=== PATIENT | female | born 1960 | race Caucasian/White ===

== ENCOUNTER 2020-10-31 12:42 | Outpatient (REF) | payer MEDICAID, SELFPAY ==
--- NOTE | 2020-10-31 12:48 | MM_ITS ---
EXAMINATION: MM SCREENING DIGITAL BREAST TOMOSYNTHESIS, BILATERAL CLINICAL INFORMATION: Screening. Asymptomatic. The lifetime risk of breast cancer based on the Tyrer-Cuzick Model is 4%. COMPARISON: Mammography: 10/13/2015, 11/05/2011, 08/17/2010 TECHNIQUE: Digital breast tomosynthesis is performed in both the craniocaudal and mediolateral oblique views along with computer-aided detection (CAD). Synthesized 2D images are generated from the tomosynthesis. FINDINGS: There are scattered areas of fibroglandular density (ACR BI-RADS breast composition Category b). The fibroglandular tissue is predominantly retroareolar and similar to prior studies. The remainder of the breasts are predominantly fatty. There are bilateral vascular calcifications. There is no interval mass or architectural abnormality or abnormal calcifications. No significant changes. MM/MM tomosynthesis screening BI IMPRESSION: No mammographic evidence of malignancy. ASSESSMENT: BI-RADS 1: Negative RECOMMENDATION: Routine annual mammography screening. This patient's information was entered into a reminder system with a target due date for their next mammogram.
--- NOTE | 2020-10-31 12:48 | MM_ITS ---
EXAMINATION: BONE DENSITOMETRY CLINICAL INDICATION: Screening. COMPARISON: Previous BD dated 10/13/2015 and baseline BD dated 08/17/2010. TECHNIQUE: Using a [employer] DXA System (software version: 13.1) manufactured by [employer], dual-energy x-ray absorptiometry was performed of the lumbar spine and left hip. The images are of good technical quality. Summary results are attached. FINDINGS: AP SPINE L1-L4: Current: BMD 0.984 g/cm2, Z-score -0.2, T-score -1.6, osteopenia, 2.4% decrease from previous, 8.5% increase from baseline (<5% change is not significant). Prior: BMD 1.008 g/cm2. Baseline: BMD 0.907 g/cm2. LEFT FEMUR, NECK: Current: BMD 0.673 g/cm2, Z-score -1.2, T-score -2.6, osteoporosis. Prior: BMD 0.663 g/cm2. Baseline: BMD 0.752 g/cm2. LEFT FEMUR, TOTAL: Current: BMD 0.669 g/cm2, Z-score -1.6, T-score -2.7, osteoporosis, 5.1% decrease from previous, 8.0% decrease from baseline (<5% change is not significant). Prior: BMD 0.705 g/cm2. Baseline: BMD 0.727 g/cm2. IDENTIFIED RISK FACTORS: Early menopause, left oophorectomy, secondary osteoporosis, alcohol (3 or more units per day). HISTORY OF FRACTURE: Wrist. No insufficiency fracture reported. MEDICATIONS: Calcium or multivitamin. Vitamin D. MM/XR DEXA axial skeleton IMPRESSION: 1. DIAGNOSIS: Osteoporosis based on the lowest T-score value of -2.7 in the total femur applying World Health Organization criteria. 2. 10-YEAR FRACTURE RISK PREDICTION, FRAX: Major osteoporotic fracture (clinical spine, forearm, hip or shoulder) 16.0%. Hip fracture 4.2%. 3. Treatment Recommendations: NOF guidelines recommend consideration for treatment in postmenopausal women and men age 50 and older presenting with the following: -A hip or vertebral (clinical or morphometric) fracture. -T-score less than or equal to -2.5 at the femoral neck or spine after appropriate evaluation to exclude secondary causes. -Low bone mass at the hip or spine and a 10-year fracture probability by FRAX of greater than or equal to 3% for hip fracture or greater than or equal to 20% for major osteoporotic fracture based on the [place] adapted WHO algorithm. 4. Other Recommendations: All treatment decisions require clinical judgment and consideration of individual patient factors, including patient preferences, comorbidities, previous drug use, risk factors not captured in the FRAX model (e.g. frailty, falls, vitamin D deficiency, increased bone turnover, interval significant decline in bone density) and possible under or overestimation of fracture risk by FRAX. Additional medical evaluation for secondary cause of low bone mineral density may be appropriate. FUTURE SCAN RECOMMENDATION: People with diagnosed cases of osteoporosis or at high risk for fracture should have regular bone mineral density tests. For patients eligible for Medicare, routine testing is allowed once every 2 years. The testing frequency can be increased to one year for patients who have rapidly progressing disease, those who are receiving or discontinuing medical therapy to restore bone mass, or have additional risk factors.
== END 2020-10-31 12:43 | disposition home or self-care (01) ==
LOC: HO.MAMMO 12:42
PROVIDERS: PCP Internal Medicine; Visit Provider Internal Medicine
DX: Z12.31 Encounter for screening mammogram for malignant neoplasm of breast (principal); Z78.0 Asymptomatic menopausal state
CPT/HCPCS: 77063; 77067; 77080

== ENCOUNTER 2020-11-16 08:04 | Outpatient (REF) | payer MEDICAID, SELFPAY ==
--- NOTE | 2020-11-16 09:04 | XR_ITS ---
EXAMINATION: CERVICAL SPINE AND RIGHT ELBOW X-RAY CLINICAL INFORMATION: Pain COMPARISON: Previous cervical spine x-ray September 2015 TECHNIQUE: 3 views of the cervical spine and 3 views of the right elbow FINDINGS: Cervical spine: There is mild 2 mm anterior subluxation of C3 with respect to C4. Bone alignment is otherwise normal. There is degenerative spondylosis and degenerative disc disease from C3-C4 to C6-C7. There is bilateral multilevel facet arthritis. Prevertebral soft tissues are normal. Left elbow: Bone alignment is normal. No acute fracture or dislocation is seen. There is arthritis at the elbow joint with joint space narrowing and osteophyte formation. Lateral view is suboptimal due to rotation. A definite elbow joint effusion is not seen. Soft tissues are unremarkable. XR/XR elbow RT 2V IMPRESSION: Cervical spine: Severe degenerative changes. Right elbow: Arthritis.
--- NOTE | 2020-11-16 09:04 | XR_ITS ---
EXAMINATION: CERVICAL SPINE AND RIGHT ELBOW X-RAY CLINICAL INFORMATION: Pain COMPARISON: Previous cervical spine x-ray September 2015 TECHNIQUE: 3 views of the cervical spine and 3 views of the right elbow FINDINGS: Cervical spine: There is mild 2 mm anterior subluxation of C3 with respect to C4. Bone alignment is otherwise normal. There is degenerative spondylosis and degenerative disc disease from C3-C4 to C6-C7. There is bilateral multilevel facet arthritis. Prevertebral soft tissues are normal. Left elbow: Bone alignment is normal. No acute fracture or dislocation is seen. There is arthritis at the elbow joint with joint space narrowing and osteophyte formation. Lateral view is suboptimal due to rotation. A definite elbow joint effusion is not seen. Soft tissues are unremarkable. XR/XR cervical spine 2V IMPRESSION: Cervical spine: Severe degenerative changes. Right elbow: Arthritis.
[2020-11-16 09:52] LABS: MANUAL DIFF FLAG NO
[2020-11-16 09:58] LABS: Basophils Percent Auto 0.6 % (0-2); Eosinophils Absolute Auto 0.1 X10*3/uL (0.0-0.4); Eosinophils Percent Auto 3.2 % (0-4); Hematocrit 36.9 % (37-47); Hemoglobin 12.6 g/dl (12.0-16.0); Imm Gran Abs Auto 0.01 X10*3/uL (0.00-0.03); Imm Gran Pct Auto 0.3 % (0.0-0.4); Lymphocytes Absolute Auto 0.9 X10*3/uL (1.2-4.9); Lymphocytes Percent Auto 28.4 % (20-40); Mean Corpuscular HGB Conc 34.1 g/dl (31.0-35.0); Mean Corpuscular Hemoglobin 34.2 pg (27.0-33.0); Mean Corpuscular Volume 100.3 fL (80-98); Mean Platelet Volume 10.1 fL (9.4-12.3); Monocytes Absolute Auto 0.3 X10*3/uL (0.1-1.2); Monocytes Percent Auto 9.7 % (2-11); Neutrophils Absolute Auto 1.8 X10*3/uL (2.0-8.3); Neutrophils Percent Auto 57.8 % (45-73); Red Blood Count 3.68 X10*6/uL (4.20-5.50); Red Cell Distribution Width 11.5 % (11.0-16.0); White Blood Count 3.1 X10*3/uL (4.8-10.8)
[2020-11-16 10:06] LABS: Platelet Count 80 X10*3/uL (160-400)
[2020-11-16 10:35] LABS: Alanine Aminotransferase 59 U/L (0-31); Albumin Level 4.1 g/dL (3.5-5.0); Alkaline Phosphatase 97 U/L (39-117); Anion Gap 14 (12-20); Aspartate Amino Transferase 85 U/L (5-31); Blood Urea Nitrogen 13 mg/dL (9-16); C Reactive Protein 0.07 mg/dL (< or = 0.50); Calcium 8.9 mg/dL (8.4-10.2); Carbon Dioxide 25 mmol/L (22-29); Chloride 106 mmol/L (96-108); Estimated Glomerular Filt Rate > 60; Glucose Random 107 mg/dL (60-115); Potassium 3.6 mmol/l (3.3-5.1); Rheumatoid Factor 34.5 IU/mL (<15.0); Sodium 141 mmol/L (135-145)
[2020-11-16 10:55] LABS: Erythrocyte Sedimentation Rate 13 MM/HR (0-20); Thyroid Stimulating Hormone 1.26 uIU/mL (0.32-4.0)
[2020-11-16 10:59] LABS: HBS Num1 0.71 mIU/mL (0-7.99); HBc Num1 0.07 S/CO (0.00-0.79); HBsAGNum1 0.16 S/CO (0.00-0.99); Hepatitis A Antibody IgM 0.25 Index (0-0.79); Hepatitis B Core Antibody Nonreactive (Nonreactive); Hepatitis B Surface Antigen Negative (Negative); ~HepC Num1 0.12 S/CO (0.00-0.79); ~Hepatitis A Antibody IgM Nonreactive (Nonreactive); ~Hepatitis B Surface Antibody NONREACTIVE (Nonreactive); ~Hepatitis C Antibody Nonreactive (Nonreactive)
[2020-11-16 11:00] LABS: Glucose Urine UA NEG (NEG); Leukocyte Esterase Urine NEG (NEG); Nitrite Urine NEG (NEG); Specific Gravity - Urine >= 1.030 (1.005-1.025); Urine Blood NEG (NEG); Urine Ketones NEG (NEG); Urine Protein NEG (NEG-TRACE)
[2020-11-16 11:02] LABS: Appearance Urine CLEAR; Color Urine YELLOW
[2020-11-16 11:23] LABS: Bacteria Urine TRACE /LPF; RBC Urine 0-2 /HPF (0); Squamous Epithelial Cell Urine TRACE /LPF; WBC Urine 0-2 /HPF (0-4)
[2020-11-16 11:24] LABS: Uric Acid Crystals Urine TRACE /LPF
[2020-11-17 06:43] LABS: Thyroglobulin Antibodies 12 IU/mL (< or = 1); Thyroid Peroxidase Antibodies 199 IU/mL (<9)
[2020-11-17 12:36] LABS: Anti DNA DS Antibody <1 IU/mL; Antibody to SS-A Antigen <1.0 NEG AI (<1.0 NEG); Antibody to SS-B Antigen <1.0 NEG AI (<1.0 NEG); SM/Ribonucleoprotein Ab <1.0 NEG AI (<1.0 NEG); Scleroderma 70 Antibody <1.0 NEG AI (<1.0 NEG); Smith Protein <1.0 NEG AI (<1.0 NEG)
[2020-11-17 14:12] LABS: IgA 451 mg/dL (70-320); IgG 1000 mg/dL (600-1540); IgM 157 mg/dL (50-300)
[2020-11-17 15:22] LABS: Prot Elec - Albumin 3.9 g/dL (3.8-4.8); Prot Elec - Alpha1 0.3 g/dL (0.2-0.3); Prot Elec - Alpha2 0.6 g/dL (0.5-0.9); Prot Elec - Beta 1 0.4 g/dL (0.4-0.6); Prot Elec - Beta 2 0.4 g/dL (0.2-0.5); Prot Elec - Total Protein 6.6 g/dL (6.1-8.1)
[2020-11-17 15:48] LABS: Cyclic Citrullinated Peptide <16 UNITS
[2020-11-18 13:27] LABS: Complement C3 79 mg/dL (83-193)
[2020-11-20 13:57] LABS: Vitamin D 25-OH, D2 <4 ng/mL; Vitamin D 25-OH, D3 39 ng/mL; Vitamin D 25-OH, Total 39 ng/mL (30-100)
== END 2020-11-16 08:05 | disposition home or self-care (01) ==
LOC: HO.LAB 08:04
PROVIDERS: PCP Internal Medicine; Visit Provider Student in an Organized Health Care Education/Training Program
DX: M25.50 Pain in unspecified joint (principal); R76.8 Other specified abnormal immunological findings in serum; Z87.891 Personal history of nicotine dependence
CPT/HCPCS: 36415; 72040; 73070; 80053; 81001; 82306; 82784; 84155; 84165; 84443; 85025; 85652; 86140; 86160; 86200; 86225; 86235; 86334; 86376; 86431; 86704; 86706; 86709; 86800; 86803; 87340; 99202

== ENCOUNTER 2021-01-05 08:21 | Outpatient (REF) | payer MEDICAID, SELFPAY ==
[2021-01-05 09:43] LABS: MANUAL DIFF FLAG NO
[2021-01-05 09:55] LABS: Basophils Percent Auto 0.7 % (0-2); Eosinophils Absolute Auto 0.1 X10*3/uL (0.0-0.4); Hematocrit 39.6 % (37-47); Hemoglobin 13.1 g/dl (12.0-16.0); Imm Gran Abs Auto 0.01 X10*3/uL (0.00-0.03); Imm Gran Pct Auto 0.3 % (0.0-0.4); Lymphocytes Percent Auto 33.1 % (20-40); Mean Corpuscular HGB Conc 33.1 g/dl (31.0-35.0); Mean Corpuscular Hemoglobin 33.9 pg (27.0-33.0); Mean Corpuscular Volume 102.6 fL (80-98); Monocytes Absolute Auto 0.3 X10*3/uL (0.1-1.2); Monocytes Percent Auto 8.9 % (2-11); Neutrophils Absolute Auto 1.6 X10*3/uL (2.0-8.3); Red Blood Count 3.86 X10*6/uL (4.20-5.50); Red Cell Distribution Width 11.1 % (11.0-16.0)
[2021-01-05 09:56] LABS: Platelet Count 72 X10*3/uL (160-400)
[2021-01-05 10:12] LABS: Alanine Aminotransferase 115 U/L (0-31); Albumin Level 4.3 g/dL (3.5-5.0); Alkaline Phosphatase 113 U/L (39-117); Anion Gap 14 (12-20); Aspartate Amino Transferase 187 U/L (5-31); Blood Urea Nitrogen 8 mg/dL (9-16); C Reactive Protein 0.05 mg/dL (< or = 0.50); Calcium 9.4 mg/dL (8.4-10.2); Carbon Dioxide 27 mmol/L (22-29); Chloride 103 mmol/L (96-108); Estimated Glomerular Filt Rate > 60; Glucose Random 115 mg/dL (60-115); Potassium 4.2 mmol/L (3.3-5.1); Sodium 140 mmol/L (135-145); Total Protein 7.5 g/dL (6.5-8.0)
[2021-01-05 10:42] LABS: Erythrocyte Sedimentation Rate 7 MM/HR (0-20)
[2021-01-07 18:21] LABS: TS Negative Control Passed; TS Panel A 0; TS Panel B 0; TS Positive Control Passed; TSpotTB Negative (SeeBelow)
[2021-01-10 07:06] LABS: Vitamin D 25-OH, D2 <4 ng/mL; Vitamin D 25-OH, D3 44 ng/mL; Vitamin D 25-OH, Total 44 ng/mL (30-100)
== END 2021-01-05 08:22 | disposition home or self-care (01) ==
LOC: HO.LAB 08:21
PROVIDERS: PCP Internal Medicine; Visit Provider Student in an Organized Health Care Education/Training Program
DX: M05.9 Rheumatoid arthritis with rheumatoid factor, unspecified (principal); M81.8 Other osteoporosis without current pathological fracture; M32.9 Systemic lupus erythematosus, unspecified; M47.22 Other spondylosis with radiculopathy, cervical region; D72.819 Decreased white blood cell count, unspecified; R79.89 Other specified abnormal findings of blood chemistry
CPT/HCPCS: 36415; 80053; 82306; 85025; 85652; 86140; 86481; 99212

== ENCOUNTER 2021-01-13 08:31 | Outpatient (REF) | payer MEDICAID, SELFPAY ==
--- NOTE | ~2021-01-13 | MR_ITS ---
EXAMINATION: MR CERVICAL SPINE WITHOUT CONTRAST CLINICAL INFORMATION: Other spondylosis with radiculopathy, cervical region. COMPARISON: Cervical spine MRI December 17, 2006. TECHNIQUE: MRI of the cervical spine was performed using routine sequences without contrast. FINDINGS: The cervical vertebral bodies maintain normal heights. There is progressive grade 1 anterolisthesis of C3 on C4 measuring up to 4 mm with alignment otherwise maintained. There is multilevel intervertebral disc height loss predominantly at the C3-C4 and C4-C5 levels. The cervical cord signal appears normal. The imaged portions of the extraspinal soft tissues appear normal. The imaged portions of the intracranial contents appear normal. SPINAL LEVELS: C2-C3: No posterior disc abnormality. No spinal canal or neural foraminal stenosis. C3-C4: Progressive anterolisthesis with disc osteophyte complex and ligamentum flavum infolding resulting in progressive now moderate to severe spinal canal stenosis with flattening of the cord. Progressive severe facet arthropathy and in combination with uncovertebral hypertrophy results in new severe bilateral neural foraminal stenosis. C4-C5: Disc osteophyte complex with uncovertebral hypertrophy and progressive moderate bilateral facet arthropathy resulting in moderate to severe spinal canal stenosis and severe bilateral left more than right neural foraminal stenosis. C5-C6: Disc osteophyte complex with uncovertebral hypertrophy and mild facet arthropathy resulting in progressive moderate spinal canal stenosis and progressive moderate to severe bilateral neural foraminal stenosis. C6-C7: No posterior disc abnormality. Right foraminal protrusion with uncovertebral hypertrophy mildly narrows the right neural foramen, similar prior. C7-T1: No posterior disc abnormality. No spinal canal or neural foraminal stenosis. MR/MR cervical spine wo con IMPRESSION: At C3-C4 there is progressive grade 1 anterolisthesis related to advanced facet arthropathy resulting in new moderate to severe spinal canal stenosis and severe bilateral neural foraminal stenosis. At C4-C5 there is progressive moderate to severe spinal canal stenosis and severe bilateral neural foraminal stenosis. At C5-C6 there is progressive moderate spinal canal stenosis and moderate to severe bilateral neural foraminal stenosis.
== END 2021-01-13 08:32 | disposition home or self-care (01) ==
LOC: HO.MRI 08:31
PROVIDERS: Visit Provider Student in an Organized Health Care Education/Training Program
DX: M47.22 Other spondylosis with radiculopathy, cervical region (principal)
CPT/HCPCS: 72141

== ENCOUNTER 2021-01-26 08:13 | Outpatient (REF) | payer MEDICAID, SELFPAY ==
--- NOTE | ~2021-01-26 | US_ITS ---
EXAMINATION: US ABDOMEN COMPLETE CLINICAL INFORMATION: Elevated LFTs. COMPARISON: Ultrasound abdomen complete 09/20/2015 TECHNIQUE: Real-time imaging of the abdominal viscera. FINDINGS: PANCREAS: Normal. ABDOMINAL AORTA: There is mild atherosclerosis of abdominal aorta. INFERIOR VENA CAVA: Visualized portions are normal. LIVER: The umbilical vein has been recanalized. The liver is normal in size. The liver contour is normal. Parenchymal echogenicity is normal. No focal hepatic lesion. There is no intrahepatic biliary duct dilatation seen. GALLBLADDER: Normal. The gallbladder is physiologically distended without evidence of stones, sludge, polyps, wall thickening or pericholecystic fluid. COMMON BILE DUCT: Normal in caliber measuring 0.5 cm in diameter. RIGHT KIDNEY: There are 2 echogenic stones in midpole measuring 0.2 x 0.09 and 0.2 x 0.1 cm. There is no caliectasis or hydronephrosis. The kidney measures 10.0 cm in maximum dimension. LEFT KIDNEY: There is a small dromedary hump midpole. No hydronephrosis. No renal calculi or focal parenchymal lesions. The kidney measures 10.0 cm in maximum dimension. SPLEEN: Normal. The spleen measures 12.9 cm in maximum dimension. FREE FLUID: None. US/US abdomen complete IMPRESSION: Punctate echogenic nonobstructive stones midpole right kidney. Mild atherosclerotic plaque abdominal aorta.
== END 2021-01-26 08:14 | disposition home or self-care (01) ==
LOC: HO.US 08:13
PROVIDERS: Visit Provider Internal Medicine
DX: R79.89 Other specified abnormal findings of blood chemistry (principal)
CPT/HCPCS: 76700

== ENCOUNTER → 2021-02-01 09:06 | Outpatient (BNVA) | payer MEDICAID, SELFPAY | PROVIDERS: PCP Internal Medicine; Visit Provider Student in an Organized Health Care Education/Training Program | DX: M32.9 Systemic lupus erythematosus, unspecified (principal); M05.9 Rheumatoid arthritis with rheumatoid factor, unspecified; M47.22 Other spondylosis with radiculopathy, cervical region; M81.8 Other osteoporosis without current pathological fracture; I10 Essential (primary) hypertension; R79.89 Other specified abnormal findings of blood chemistry; Z79.899 Other long term (current) drug therapy | CPT/HCPCS: 99212 ==

== ENCOUNTER → 2021-02-14 08:56 | Outpatient (BNVA) | payer MEDICAID, SELFPAY | PROVIDERS: PCP Internal Medicine; Visit Provider Physician Assistant ==

== ENCOUNTER 2021-04-10 08:08 | Day surgery (SDC) | payer MEDICAID, SELFPAY ==
--- NOTE | 2021-04-06 14:09 | HO.ANESPROP2 ---
Documented by User: Mame Quintana 04/06/21 14:16 HPI - Anesthesia Eval Consult details Narrative: 60yo F for Upper Endoscopy and Colonoscopy Chronic leukopenia and thrombocytopenia. Started on plaquenil and platelets trending down. Will repeat levels DOS. PMFSH Active Problems Active Problems: All Active Problems (Updated 02/14/21 @ 10:51 by Ivonne Cash PA-C) Thrombocytopenia (Acute) Hypertension (Acute) Polyarthralgia (Acute) Leukopenia (Chronic) Lupus (systemic lupus erythematosus) (Acute) Seropositive rheumatoid arthritis (Acute) Cervical spondylosis with radiculopathy (Acute) Osteoporosis (Acute) Elevated LFTs (Acute) Cervical stenosis of spinal canal (Acute) CAIT positive (Acute) Past Medical History Medical History CAIT positive Cervical stenosis of spinal canal Hx of fracture of wrist Hx of ovarian cancer Hypertension Leukopenia Lupus (systemic lupus erythematosus) Osteoporosis Polyarthralgia Thrombocytopenia Family History Family History Paternal Grandmother Ovarian cancer Maternal Grandmother H/O heart bypass surgery Maternal Grandfather Heart attack Mother Asthma HTN (hypertension) Hyperlipidemia Father HTN (hypertension) Hyperlipidemia Surgical History Surgical History Hx of removal of ovary Social History Social History Household Members: None Alcohol intake: former Substance Use Type: Marijuana Advance Directives: No Advance Directives Information Provided: Yes Current occupational status: employed 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 Meds Allergies Allergy/AdvReac Type Severity Reaction Status Date / Time Seasonal Allergies Allergy sneezing Verified 02/14/21 09:11 Home Medications Medication Instructions Recorded Confirmed Last Taken Type ascorbate calcium (vitamin C) 500 500 mg PO DAILY 02/01/21 02/14/21 Unknown History mg tablet cholecalciferol (vitamin D3) 25 25 mcg PO DAILY 02/01/21 02/14/21 Unknown History mcg (1,000 unit) capsule vitamin B complex 1 tab PO DAILY 02/01/21 02/14/21 Unknown History vitamin C 50 mg-biotin 1,250 mcg tab PO 02/14/21 02/14/21 Unknown History chewable tablet Exam Exam Date and Time: April 06, 2021 1409 Height,Weight and Vital Signs: Height 5 ft 4 in Pertinent Lab Results Pertinent Lab Results: Laboratory Tests 01/05/21 01/05/21 09:15 09:15 WBC 3.0 L Hgb 13.1 Hct 39.6 Plt Count 72 L Sodium 140 Potassium 4.2 Chloride 103 Carbon Dioxide 27 BUN 8 L Creatinine 0.79 Assessment and Plan Assessment Anesthesia Assessment: Chart Reviewed Documented by User: Giana Ibarra 04/10/21 09:38 [facility] Past Medical History Medical History CAIT positive Cervical stenosis of spinal canal Hx of fracture of wrist Hx of ovarian cancer Hypertension Leukopenia Lupus (systemic lupus erythematosus) Osteoporosis Polyarthralgia Thrombocytopenia Family History Family History Paternal Grandmother Ovarian cancer Maternal Grandmother H/O heart bypass surgery Maternal Grandfather Heart attack Mother Asthma HTN (hypertension) Hyperlipidemia Father HTN (hypertension) Hyperlipidemia Surgical History Surgical History Hx of removal of ovary Social History Social History Household Members: None Alcohol intake: former Substance Use Type: Marijuana Advance Directives: No Advance Directives Information Provided: Yes Current occupational status: employed 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 Meds Allergies Allergy/AdvReac Type Severity Reaction Status Date / Time Seasonal Allergies Allergy sneezing Verified 02/14/21 09:11 Home Medications Medication Instructions Recorded Confirmed Last Taken Type ascorbate calcium (vitamin C) 500 500 mg PO DAILY 02/01/21 02/14/21 Unknown History mg tablet cholecalciferol (vitamin D3) 25 25 mcg PO DAILY 02/01/21 02/14/21 Unknown History mcg (1,000 unit) capsule vitamin B complex 1 tab PO DAILY 02/01/21 02/14/21 Unknown History vitamin C 50 mg-biotin 1,250 mcg tab PO 02/14/21 02/14/21 Unknown History chewable tablet Exam Airway Mallampati Class: II TM Dist: >3cm Neck ROM: Full Denture: Upper
[2021-04-10 08:12] VITALS: BMI 28.5
--- NOTE | 2021-04-10 09:25 | MHC.SHP ---
Pre-Procedural Eval Section B Chief Complaint: Elevated LFT's Relevant Family History (Specify if Yes): No Relevant Social History: Other (specify) (THC) Present Medications: see Short Stay Collaborative assessment Medical History: Significant History (CAIT positive Cervical stenosis of spinal canal Hx of fracture of wrist Hx of ovarian cancer Hypertension Leukopenia Lupus (systemic lupus erythematosus) Osteoporosis Polyarthralgia Thrombocytopenia) History of Previous Operations: Relevant previous surgery/procedure and date(s) (oophorectomy) Allergies: Allergies Allergy/AdvReac Type Severity Reaction Status Date / Time Seasonal Allergies Allergy sneezing Verified 02/14/21 09:11 Review of Systems Sugical H&P ROS: Negative: Constitution, Cardiovascular, Respiratory, Neurological, Psychiatric, Hem-Onc, Allergic/Immunologic, Gastrointestinal, Genitourinary, Musculoskeletal, Integumentary, Endocrine and Eyes/Ears/Nose/Throat Exam Surgical H&P Exam: Normal: HEENT, Normal: Heart, Normal: Lungs, Normal: Extremities, Normal: Abdomen, Normal: Skin and Normal: Neurological Plan Diagnosis/Plan: Unchanged I have reviewed the history and physical and performed a pertinent physical examination on my patient. No changes have occurred unless specified.
--- NOTE | 2021-04-10 09:31 | P.BOP_ITS ---
Brief Operative Note Date of Service: 04/10/21 Pre-op diagnosis: variceal screening, colon screening Post-op diagnosis: same Procedure: see op note Surgeon: Cali Marcelino MD Anesthesia: MAC Was an House Mover Supervisor used for this Procedure?: No Estimated blood loss (mL): 0 Condition: stable Disposition: PACU
--- NOTE | 2021-04-10 09:32 | W.PM.OPN ---
Operative Note Operative Note Date of Service: 04/10/21 Narrative: Operative Information Procedure Description: EGD, Colonoscopy FLEXIBLE TRANSORAL UPPER GASTROINTESTINAL ENDOSCOPY AND COLONOSCOPY PROCEDURE NOTE UPPER ENDOSCOPY Consent: Indications for the procedure and potential complications of bleeding, perforation, reaction to medications and missed diagnosis were discussed with the patient and informed consent was obtained. Instrument: Olympus GIF H 190 J mid size upper endoscope Monitoring: Vital signs and clinical assessment, continuous EKG monitoring, Pulse oximetry, Carbon Dioxide monitoring and blood pressure monitoring were done throughout the procedure. Procedure: The patient was placed in the left lateral decubitis position and pre-procedure medications were administered and a bite block was placed. The endoscope was inserted into the mouth and advanced under direct vision to the third part of duodenum. A careful inspection was made as the upper endoscope was withdrawn including a retroflexed examination of the proximal stomach; Findings and interventions are described below. Findings: Larynx:normal Esophagus: GE junction at 40 cm, diaphragm hiatus at 40 cm, x 1 esophageal varix seen which collapsed with air insufflation Stomach: erythema with mosaic pattern consistent with portal hypertensive gastropathy. Biopsies were obtained. Grade 2 flap valve on retroflexed examination of the cardia. No fundal varices seen Duodenum: Normal bulb and descending duodenum, bx taken Intervention: Biopsies as noted above COLONOSCOPY Instrument: Olympus variable stiffness pediatric scope 190L Colonoscopy Monitoring: Vital signs and clinical assessment, continuous EKG monitoring, Pulse oximetry, Carbon Dioxide monitoring and blood pressure monitoring were done throughout the procedure. Colon withdrawal time was 6 minutes. Procedure: The patient was placed in the left lateral decubitis position and pre-procedure medications were administered. After a digital rectal examination of the ano-rectum, the video colonoscope was inserted into the rectum and advanced through the colon to the cecum/TI. The colonoscope was slowly withdrawn in a retrograde panoramic fashion and the colon mucosa was carefully examined including a retroflexed view of the rectum. Findings and interventions are described below. Procedure Difficulty:moderate, pressure applied to get to cecum Findings: Terminal Ileum-normal Cecum:normal Ascending Colon: normal Transverse Colon -normal Descending Colon:normal Sigmoid Colon: normal Rectum: Retroflexion with moderate sized internal hemorrhoids, grade I Anorectum - normal Colon preparation: [place] Bowel Preparation Scale Right colon; 3 Transverse colon: 3 Left colon; 3 (0 = Unprepared colon segment with mucosa not seen due to solid stool that cannot be cleared. 1 = Portion of mucosa of the colon segment seen, but other areas of the colon segment not well seen due to staining, residual stool and/or opaque liquid. 2 = Minor amount of residual staining, small fragments of stool and/or opaque liquid, but mucosa of colon segment seen well. 3 = Entire mucosa of colon segment seen well with no residual staining, small fragments of stool or opaque liquid) Impression and Post Procedure Diagnosis: Endoscopy Findings: portal hypertensive gastropathy esophageal varix Colonoscopy Findings: internal hemorrhoids Plan: Await Pathology results Repeat Colonoscopy in 10 years or earlier if clinically indicated High fiber diet leaflet avoid straining at stool, epsom salts and sitz bath, anusol supps or cream as needed repeat EGD in 1-2 yrs or earlier if clinically indicated Above findings were reviewed with the patient and relevant handouts were provided if indicated.
[2021-04-10 09:59] LABS: Hematocrit 38.5 % (37-47); Hemoglobin 13.2 g/dl (12.0-16.0); Mean Corpuscular HGB Conc 34.3 g/dl (31.0-35.0); Mean Corpuscular Volume 93.2 fL (80-98); Mean Platelet Volume 10.1 fL (9.4-12.3); Red Blood Count 4.13 X10*6/uL (4.20-5.50); Red Cell Distribution Width 11.1 % (11.0-16.0); White Blood Count 2.9 X10*3/uL (4.8-10.8)
[2021-04-10 10:01] LABS: Platelet Count 82 X10*3/uL (160-400)
[2021-04-10 10:02] VITALS: BP 178/63; PULSE 57; RESP 16; TEMP 36.8; O2SAT 100
[2021-04-10 10:30] VITALS: BP 130/72; PULSE 95; RESP 16; TEMP 36.3; O2SAT 100
[2021-04-10 10:45] VITALS: BP 154/90; PULSE 95; RESP 16; TEMP 36.3; O2SAT 99
== END 2021-04-10 11:30 | disposition home or self-care (01) ==
PROVIDERS: Nurse Practitioner; PCP Internal Medicine; Visit Provider Internal Medicine Gastroenterology
PROC: (CPT 43239; principal; 2021-04-10 09:30)
DX: Z12.11 Encounter for screening for malignant neoplasm of colon (principal); R79.89 Other specified abnormal findings of blood chemistry; K64.0 First degree hemorrhoids; I85.00 Esophageal varices without bleeding; K76.6 Portal hypertension; K31.89 Other diseases of stomach and duodenum; I10 Essential (primary) hypertension; D69.6 Thrombocytopenia, unspecified; Z79.899 Other long term (current) drug therapy
CPT/HCPCS: 43239; 45378; 36415; 85027; 88305; 88342

== ENCOUNTER 2021-04-26 08:48 | Outpatient (REF) | payer MEDICAID, SELFPAY ==
--- NOTE | ~2021-04-26 | XR_ITS ---
EXAMINATION: XR SHOULDER, RIGHT CLINICAL INFORMATION: Pain. History of lupus. COMPARISON: None TECHNIQUE: AP external rotation, Grashey, scapular Y, and axillary views of the right shoulder. FINDINGS: The bones are osteopenic. Bone alignment is normal. No acute fracture or dislocation is seen. There are old healed right rib fractures. Glenohumeral joint is normal. There is mild arthritis at the acromioclavicular joint. There are degenerative changes of the greater tuberosity. Soft tissues are unremarkable. XR/XR shoulder RT min 2V IMPRESSION: Osteopenia. Arthritis at the acromioclavicular joint and degenerative changes of the greater tuberosity.
[2021-04-26 11:15] LABS: MANUAL DIFF FLAG NO
[2021-04-26 11:44] LABS: Basophils Percent Auto 0.8 % (0-2); Eosinophils Absolute Auto 0.1 X10*3/uL (0.0-0.4); Eosinophils Percent Auto 3.4 % (0-4); Hematocrit 38.6 % (37-47); Hemoglobin 12.8 g/dl (12.0-16.0); Lymphocytes Absolute Auto 1.1 X10*3/uL (1.2-4.9); Lymphocytes Percent Auto 30.1 % (20-40); Mean Corpuscular HGB Conc 33.2 g/dl (31.0-35.0); Mean Corpuscular Hemoglobin 30.8 pg (27.0-33.0); Mean Corpuscular Volume 92.8 fL (80-98); Mean Platelet Volume 10.3 fL (9.4-12.3); Monocytes Absolute Auto 0.3 X10*3/uL (0.1-1.2); Monocytes Percent Auto 7.9 % (2-11); Neutrophils Absolute Auto 2.1 X10*3/uL (2.0-8.3); Neutrophils Percent Auto 57.8 % (45-73); Red Blood Count 4.16 X10*6/uL (4.20-5.50); Red Cell Distribution Width 11.2 % (11.0-16.0); White Blood Count 3.6 X10*3/uL (4.8-10.8)
[2021-04-26 11:45] LABS: INTERNATIONAL NORM RATIO 1.1 (0.9-1.1); Prothrombin Time 13.1 SEC (10.8-13.0)
[2021-04-26 11:49] LABS: Platelet Count 93 X10*3/uL (160-400)
[2021-04-26 11:54] LABS: Glucose Urine UA NEG (NEG); Leukocyte Esterase Urine NEG (NEG); Nitrite Urine NEG (NEG); Specific Gravity - Urine >= 1.030 (1.005-1.025); Urine Blood NEG (NEG); Urine Ketones NEG (NEG); Urine Protein TRACE MG/DL (NEG-TRACE)
[2021-04-26 11:58] LABS: Appearance Urine CLEAR; Color Urine YELLOW
[2021-04-26 12:05] LABS: Mucus Urine 1+ /LPF; RBC Urine 0 /HPF (0); WBC Urine 0 /HPF (0-4)
[2021-04-26 12:09] LABS: Ferritin 260 ng/mL (10-250)
[2021-04-26 12:27] LABS: Alanine Aminotransferase 19 U/L (0-31); Albumin Level 4.5 g/dL (3.5-5.0); Alkaline Phosphatase 87 U/L (39-117); Anion Gap 12 (12-20); Aspartate Amino Transferase 35 U/L (5-31); Bilirubin Direct 0.2 mg/dL (0.0-0.5); Bilirubin Total 0.4 mg/dL (0.0-1.0); Blood Urea Nitrogen 8 mg/dL (9-16); C Reactive Protein 0.06 mg/dL (< or = 0.50); Calcium 9.5 mg/dL (8.4-10.2); Carbon Dioxide 25 mmol/L (22-29); Chloride 108 mmol/L (96-108); Estimated Glomerular Filt Rate > 60; Glucose Random 87 mg/dL (60-115); Iron 66 mcg/dL (30-160); Percent Iron Saturation 19 % (15-50); Potassium 4.3 mmol/L (3.3-5.1); Sodium 141 mmol/L (135-145); Total Iron Binding Capacity 341 mcg/dL (228-428); Total Protein 7.6 g/dL (6.5-8.0); Unsaturated Iron Binding 275 ug/dL
[2021-04-26 12:47] LABS: Erythrocyte Sedimentation Rate 19 MM/HR (0-20)
[2021-04-27 13:12] LABS: Anti DNA DS Antibody <1 IU/mL
[2021-04-27 16:06] LABS: Complement C3 134 mg/dL (83-193)
[2021-04-28 15:17] LABS: ANA Pattern 2 Nuclear, Homogeneous; ANA Titer 2 1:40 titer; Anti Nuclear Antibody Screen POSITIVE (NEGATIVE)
[2021-04-28 21:47] LABS: Alpha 1 Anti-trypsin 190 mg/dL (83-199)
== END 2021-04-26 08:49 | disposition home or self-care (01) ==
LOC: HO.LAB 08:48
PROVIDERS: Physician Assistant; PCP Internal Medicine; Visit Provider Student in an Organized Health Care Education/Training Program
DX: R10.11 Right upper quadrant pain (principal); M32.9 Systemic lupus erythematosus, unspecified; D64.9 Anemia, unspecified; M05.9 Rheumatoid arthritis with rheumatoid factor, unspecified; M81.8 Other osteoporosis without current pathological fracture; M47.22 Other spondylosis with radiculopathy, cervical region; M67.911 Unspecified disorder of synovium and tendon, right shoulder; D69.6 Thrombocytopenia, unspecified; R79.89 Other specified abnormal findings of blood chemistry; R74.01 Elevation of levels of liver transaminase levels
CPT/HCPCS: 36415; 73030; 80053; 80076; 81001; 81256; 82103; 82248; 82728; 83540; 85025; 85610; 85652; 86038; 86039; 86140; 86160; 86225; 99212

== ENCOUNTER 2021-06-07 08:20 | Outpatient (REF) | payer MEDICAID, SELFPAY ==
--- NOTE | ~2021-06-07 | US_ITS ---
EXAMINATION: US COMPLETE ABDOMEN WITH LIVER ELASTOGRAPHY CLINICAL INFORMATION: Abnormal blood chemistry. COMPARISON: Ultrasound 01/26/2021 TECHNIQUE: Real-time imaging of the abdominal viscera. Noninvasive ultrasound liver fibrosis assessment is performed using Roderick ElastPQ point quantification shear wave elastography (pSWE) with a C5-2 MHz transducer. Multiple elastography samples are obtained. FINDINGS: PANCREAS: The visualized pancreatic head and body are normal in appearance. The remainder of the pancreas is obscured from visualization by the overlying bowel gas. ABDOMINAL AORTA: There is mild atherosclerotic plaque in the abdominal aorta with otherwise normal caliber in its entire length. INFERIOR VENA CAVA: Visualized portions are normal. LIVER: Normal. The liver demonstrates normal size, contour and echogenicity. No focal lesion or intrahepatic biliary duct dilatation. The right lobe measures 11.9 cm in length. The left lobe measures 11.1 cm in length. Portal flow is hepatopetal. Incidental finding of a recanalized umbilical vein noted. Shear wave liver elastography median stiffness is 2.09 m/s (reference: Normal median stiffness is 1.3 m/s or less). IQR/median stiffness to assess sampling precision is 0.18 (reference: Good quality data set is IQR/median stiffness of 0.15 or less). GALLBLADDER: Normal. The gallbladder is physiologically distended without evidence of stones, sludge, polyps, wall thickening or pericholecystic fluid. COMMON BILE DUCT: Normal in caliber measuring 0.4 cm in diameter. RIGHT KIDNEY: No hydronephrosis. There is a punctate echogenic calcification or a tiny calculus at the lower pole of the right kidney. The kidney measures 9.7 cm in maximum dimension. LEFT KIDNEY: A prominent dromedary hump is noted. No hydronephrosis. No renal calculi or focal parenchymal lesions. The kidney measures 10.4 cm in maximum dimension. SPLEEN: Normal. The spleen measures 13.4 cm in maximum dimension. There are multiple tiny echogenic foci visualized. FREE FLUID: None. US/US abdomen comp w elastography IMPRESSION: 1. Hepatic steatosis without focal lesion. Hepatopetal flow in the portal vein with a recanalized umbilical vein. Punctate calcification or a tiny calculus lower pole right kidney. Multiple tiny echogenic calcifications in the spleen. No major change compared to previous exam 01/26/2021 ultrasound 2. Liver Elastography: Median liver stiffness 2.09 m/s suggestive of cACLD. REFERENCE: Society of Radiologists in Ultrasound Liver Stiffness Thresholds (2020): LIVER STIFFNESS THRESHOLDS: *Liver Stiffness equal or less than 1.3 m/s: High probability of being normal. *Liver Stiffness less than 1.7 m/s: In the absence of other known clinical signs, rules out compensated advanced chronic liver disease. *Liver Stiffness 1.7-2.1 m/s: Suggestive of compensated advanced chronic liver disease but need further test for confirmation. *Liver Stiffness over 2.1 m/s: Rules in compensated advanced chronic liver disease. *Liver Stiffness over 2.4 m/s: Suggestive of clinically significant portal hypertension. QUALITY OF DATA SET: *IQR/Median value equal or less than 0.15 implies a quality data set. *IQR/Median value over 0.15 implies a poor quality data set. SIGNIFICANT CHANGE FROM PRIOR EXAM: Significant change if liver stiffness measurement is 10% or greater from prior exam. OTHER CONSIDERATIONS: The stage of liver fibrosis may be overestimated in the setting of acute hepatitis, liver inflammation, elevated liver function tests, hepatic vascular congestion, obstructive cholestasis, non-fasting state, and infiltrative diseases such as amyloidosis and lymphoma. In some patients with NAFLD, the liver stiffness thresholds for compensated advanced chronic liver disease may be lower. In causes other than viral hepatitis and NAFLD, liver stiffness thresholds are not well established.
== END 2021-06-07 08:21 | disposition home or self-care (01) ==
LOC: HO.US 08:20
PROVIDERS: PCP Internal Medicine; Visit Provider Physician Assistant
DX: R79.89 Other specified abnormal findings of blood chemistry (principal)
CPT/HCPCS: 76705; 76981

== ENCOUNTER 2021-06-19 15:10 | Outpatient (REF) | payer MEDICAID, SELFPAY ==
[2021-06-19 16:03] LABS: Glucose Urine UA NEG (NEG); Leukocyte Esterase Urine NEG (NEG); Nitrite Urine NEG (NEG); Specific Gravity - Urine <= 1.005 (1.005-1.025); Urine Blood NEG (NEG); Urine Ketones NEG (NEG); Urine Protein NEG (NEG-TRACE)
[2021-06-19 16:05] LABS: Appearance Urine CLEAR; Color Urine YELLOW
[2021-06-19 16:07] LABS: C Reactive Protein 0.03 mg/dL (< or = 0.50)
[2021-06-19 16:16] LABS: RBC Urine 0 /HPF (0); WBC Urine 0 /HPF (0-4)
[2021-06-19 16:25] LABS: Erythrocyte Sedimentation Rate 14 MM/HR (0-20)
[2021-06-20 12:21] LABS: Complement C3 57 mg/dL (83-193)
[2021-06-20 13:06] LABS: Anti DNA DS Antibody <1 IU/mL
== END 2021-06-19 15:11 | disposition home or self-care (01) ==
LOC: HO.LAB 15:10
PROVIDERS: Absent Provider Internal Medicine; PCP Internal Medicine; Visit Provider Student in an Organized Health Care Education/Training Program
DX: M32.9 Systemic lupus erythematosus, unspecified (principal)
CPT/HCPCS: 36415; 81001; 85652; 86140; 86160; 86225

== ENCOUNTER 2021-06-20 09:27 | Outpatient (REF) | payer MEDICAID, SELFPAY ==
[2021-06-20 10:50] LABS: MANUAL DIFF FLAG NO
[2021-06-20 10:59] LABS: Basophils Percent Auto 0.7 % (0-2); Eosinophils Absolute Auto 0.1 X10*3/uL (0.0-0.4); Eosinophils Percent Auto 3.7 % (0-4); Hematocrit 34.9 % (37-47); Hemoglobin 11.8 g/dl (12.0-16.0); Lymphocytes Absolute Auto 0.9 X10*3/uL (1.2-4.9); Lymphocytes Percent Auto 29.8 % (20-40); Mean Corpuscular HGB Conc 33.8 g/dl (31.0-35.0); Mean Corpuscular Hemoglobin 30.8 pg (27.0-33.0); Mean Corpuscular Volume 91.1 fL (80-98); Mean Platelet Volume 9.9 fL (9.4-12.3); Monocytes Absolute Auto 0.3 X10*3/uL (0.1-1.2); Monocytes Percent Auto 8.4 % (2-11); Neutrophils Absolute Auto 1.7 X10*3/uL (2.0-8.3); Neutrophils Percent Auto 57.4 % (45-73); Red Blood Count 3.83 X10*6/uL (4.20-5.50); Red Cell Distribution Width 11.7 % (11.0-16.0)
[2021-06-20 11:01] LABS: Platelet Count 81 X10*3/uL (160-400)
[2021-06-20 11:18] LABS: Glucose Urine UA NEG (NEG); Leukocyte Esterase Urine NEG (NEG); Nitrite Urine NEG (NEG); Urine Blood NEG (NEG); Urine Ketones NEG (NEG); Urine Protein NEG (NEG-TRACE)
[2021-06-20 11:25] LABS: Appearance Urine CLEAR; Color Urine YELLOW
[2021-06-20 11:39] LABS: Erythrocyte Sedimentation Rate 14 MM/HR (0-20)
[2021-06-20 11:58] LABS: Alanine Aminotransferase 17 U/L (0-31); Albumin Level 4.1 g/dL (3.5-5.0); Alkaline Phosphatase 75 U/L (39-117); Anion Gap 11 (12-20); Aspartate Amino Transferase 31 U/L (5-31); Bilirubin Total 0.4 mg/dL (0.0-1.0); Blood Urea Nitrogen 6 mg/dL (9-16); C Reactive Protein 0.02 mg/dL (< or = 0.50); Calcium 9.2 mg/dL (8.4-10.2); Carbon Dioxide 27 mmol/L (22-29); Chloride 109 mmol/L (96-108); Estimated Glomerular Filt Rate > 60; Glucose Random 95 mg/dL (60-115); Potassium 3.8 mmol/L (3.3-5.1); Sodium 143 mmol/L (135-145); Total Protein 6.8 g/dL (6.5-8.0)
[2021-06-20 12:02] LABS: RBC Urine 0 /HPF (0); WBC Urine 0 /HPF (0-4)
[2021-06-21 11:56] LABS: Complement C3 58 mg/dL (83-193)
[2021-06-22 11:37] LABS: Anti DNA DS Antibody <1 IU/mL
== END 2021-06-20 09:28 | disposition home or self-care (01) ==
LOC: HO.LAB 09:27
PROVIDERS: Absent Provider Student in an Organized Health Care Education/Training Program; PCP Internal Medicine; Visit Provider Nurse Practitioner Family
DX: M32.9 Systemic lupus erythematosus, unspecified (principal); M05.9 Rheumatoid arthritis with rheumatoid factor, unspecified; M81.8 Other osteoporosis without current pathological fracture; M47.22 Other spondylosis with radiculopathy, cervical region
CPT/HCPCS: 36415; 80053; 81001; 85025; 85652; 86140; 86160; 86225; 99212

== ENCOUNTER 2022-04-11 12:11 | Outpatient (REF) | payer MEDICAID, SELFPAY ==
[2022-04-11 13:44] LABS: MANUAL DIFF FLAG NO
[2022-04-11 13:53] LABS: Basophils Percent Auto 0.7 % (0-2); Eosinophils Absolute Auto 0.1 X10*3/uL (0.0-0.4); Eosinophils Percent Auto 2.8 % (0-4); Hemoglobin 11.4 g/dl (12.0-16.0); Imm Gran Abs Auto 0.01 X10*3/uL (0.00-0.03); Imm Gran Pct Auto 0.2 % (0.0-0.4); Lymphocytes Percent Auto 22.7 % (20-40); Mean Corpuscular HGB Conc 34.5 g/dl (31.0-35.0); Mean Corpuscular Hemoglobin 31.5 pg (27.0-33.0); Mean Corpuscular Volume 91.2 fL (80.0-98.0); Mean Platelet Volume 10.2 fL (9.4-12.3); Monocytes Absolute Auto 0.4 X10*3/uL (0.1-1.2); Monocytes Percent Auto 8.2 % (2-11); Neutrophils Absolute Auto 2.8 x10*3/uL (2.0-8.3); Neutrophils Percent Auto 65.4 % (45-73); Platelet Count 100 X10*3/uL (160-400); Red Blood Count 3.62 X10*6/uL (4.20-5.50); Red Cell Distribution Width 11.5 % (11.0-16.0); White Blood Count 4.3 X10*3/uL (4.8-10.8)
[2022-04-11 14:29] LABS: Alanine Aminotransferase 14 U/L (0-31); Alkaline Phosphatase 68 U/L (39-117); Anion Gap 13 (12-20); Aspartate Amino Transferase 28 U/L (5-31); Bilirubin Total 0.4 mg/dL (0.0-1.0); Blood Urea Nitrogen 17 mg/dL (9-16); Calcium 8.8 mg/dL (8.4-10.2); Carbon Dioxide 24 mmol/L (22-29); Chloride 107 mmol/L (96-108); Estimated Glomerular Filt Rate > 60; Glucose Random 86 mg/dL (60-115); Potassium 3.9 mmol/L (3.3-5.1); Rheumatoid Factor < 15.0 IU/mL (<15.0); Sodium 140 mmol/L (135-145); Total Protein 6.5 g/dL (6.5-8.0)
[2022-04-11 14:51] LABS: Vitamin B12 893 pg/mL (200-900)
[2022-04-11 14:54] LABS: Thyroid Stimulating Hormone 1.11 uIU/mL (0.32-4.0); Vitamin D 25-OH Total 26.1 ng/mL (>30)
[2022-04-13 15:33] LABS: Anti Nuclear Antibody Screen NEGATIVE (NEGATIVE)
== END 2022-04-11 12:12 | disposition home or self-care (01) ==
LOC: HO.10HDL 12:11
PROVIDERS: Visit Provider Internal Medicine
DX: R21 Rash and other nonspecific skin eruption (principal); R53.83 Other fatigue; M81.0 Age-related osteoporosis without current pathological fracture
CPT/HCPCS: 36415; 80053; 82306; 82607; 84443; 85025; 86038; 86039; 86431

== ENCOUNTER 2022-04-25 08:24 | Outpatient (REF) | payer MEDICAID, SELFPAY ==
--- NOTE | ~2022-04-25 | MM_ITS ---
EXAMINATION: MM SCREENING DIGITAL BREAST TOMOSYNTHESIS, BILATERAL CLINICAL INFORMATION: Screening. Asymptomatic. The lifetime risk of breast cancer based on the Tyrer-Cuzick Model is 4%. COMPARISON: Mammography: 10/31/2020, 10/13/2015 TECHNIQUE: Digital breast tomosynthesis is performed in both the craniocaudal and mediolateral oblique views along with computer-aided detection (CAD). Synthesized 2D images are generated from the tomosynthesis. FINDINGS: There are scattered areas of fibroglandular density (ACR BI-RADS breast composition Category b). There are no significant masses, abnormal calcifications, or other abnormalities. There is incidental low right axillary tail node on MLO view. Scattered bilateral predominantly vascular calcifications are present. Skin contours are smooth. MM/MM tomosynthesis screening BI IMPRESSION: No mammographic evidence of malignancy. ASSESSMENT: BI-RADS 2: Benign RECOMMENDATION: Routine annual mammography screening. This patient's information was entered into a reminder system with a target due date for their next mammogram.
== END 2022-04-25 08:25 | disposition home or self-care (01) ==
LOC: HO.MAMMO 08:24
PROVIDERS: Visit Provider Internal Medicine
DX: Z12.31 Encounter for screening mammogram for malignant neoplasm of breast (principal)
CPT/HCPCS: 77063; 77067

== ENCOUNTER → 2022-10-17 07:19 | Outpatient (BNVA) | payer MEDICAID, SELFPAY | PROVIDERS: PCP Internal Medicine; Visit Provider Student in an Organized Health Care Education/Training Program | DX: M32.9 Systemic lupus erythematosus, unspecified (principal); M81.8 Other osteoporosis without current pathological fracture; M67.911 Unspecified disorder of synovium and tendon, right shoulder; M47.22 Other spondylosis with radiculopathy, cervical region; Z79.899 Other long term (current) drug therapy | CPT/HCPCS: 36415; 80053; 81001; 82550; 82784; 84156; 84165; 84443; 85025; 85597; 85613; 85652; 85730; 86140; 86146; 86147; 86160; 86200; 86225; 86235; 86334; 86431; 86481; 86704; 86706; 86709; 86803; 87340; 99212 ==

== ENCOUNTER 2022-10-17 08:32 | Outpatient (REF) | payer MEDICAID, SELFPAY ==
[2022-10-17 08:51] LABS: MANUAL DIFF FLAG NO
[2022-10-17 08:57] LABS: Basophils Percent Auto 0.8 % (0-2); Eosinophils Absolute Auto 0.1 X10*3/uL (0.0-0.4); Eosinophils Percent Auto 2.3 % (0-4); Hematocrit 36.9 % (37.0-47.0); Hemoglobin 12.6 g/dl (12.0-16.0); Imm Gran Abs Auto 0.01 X10*3/uL (0.00-0.03); Imm Gran Pct Auto 0.3 % (0.0-0.4); Lymphocytes Percent Auto 26.3 % (20-40); Mean Corpuscular HGB Conc 34.1 g/dl (31.0-35.0); Mean Corpuscular Hemoglobin 31.3 pg (27.0-33.0); Mean Corpuscular Volume 91.6 fL (80.0-98.0); Mean Platelet Volume 9.4 fL (9.4-12.3); Monocytes Absolute Auto 0.3 X10*3/uL (0.1-1.2); Monocytes Percent Auto 7.5 % (2-11); Neutrophils Absolute Auto 2.4 x10*3/uL (2.0-8.3); Neutrophils Percent Auto 62.8 % (45-73); Red Blood Count 4.03 X10*6/uL (4.20-5.50); Red Cell Distribution Width 11.1 % (11.0-16.0); White Blood Count 3.9 X10*3/uL (4.8-10.8)
[2022-10-17 08:58] LABS: Platelet Count 95 X10*3/uL (160-400)
[2022-10-17 09:41] LABS: Erythrocyte Sedimentation Rate 13 MM/HR (0-20)
[2022-10-17 09:48] LABS: Appearance Urine Clear; Color Urine Dark Yellow; Glucose Urine UA Negative (Negative); Leukocyte Esterase Urine Negative (Negative); Nitrite Urine Negative (Negative); Urine Blood Negative (Negative); Urine Ketones Negative (Negative); Urine Protein Negative (Neg-Trace)
[2022-10-17 09:53] LABS: Bacteria Urine None Seen (None Seen); Hyaline Casts Urine 0-2 /LPF (0-2); RBC Urine 0-2 /HPF (0-2); Squamous Epithelial Cell Urine 0-2 /HPF (0-2); WBC Urine 0-5 /HPF (0-5)
[2022-10-17 09:55] LABS: HBS Num1 0.46 mIU/mL (0-7.99); HBc Num1 0.07 S/CO (0.00-0.79); HBsAGNum1 0.32 S/CO (0.00-0.99); Hepatitis A Antibody IgM 0.11 Index (0-0.79); Hepatitis B Core Antibody Nonreactive (Nonreactive); Hepatitis B Surface Antigen Negative (Negative); ~Hepatitis A Antibody IgM Nonreactive (Nonreactive); ~Hepatitis B Surface Antibody NONREACTIVE (Nonreactive); ~Hepatitis C Antibody Nonreactive (Nonreactive)
[2022-10-17 10:25] LABS: Alanine Aminotransferase 20 U/L (0-31); Albumin Level 4.6 g/dL (3.5-5.0); Alkaline Phosphatase 49 U/L (39-117); Anion Gap 12 (12-20); Aspartate Amino Transferase 29 U/L (5-31); Bilirubin Total 0.3 mg/dL (0.0-1.0); Blood Urea Nitrogen 16 mg/dL (9-16); C Reactive Protein < 0.04 mg/dL (< or = 0.50); Calcium 9.6 mg/dL (8.4-10.2); Carbon Dioxide 27 mmol/L (22-29); Chloride 107 mmol/L (96-108); Estimated Glomerular Filt Rate > 60; Glucose Random 98 mg/dL (60-115); Potassium 4.4 mmol/L (3.3-5.1); Rheumatoid Factor < 13.0 IU/mL (<15.0); Sodium 142 mmol/L (135-145); Thyroid Stimulating Hormone 1.74 uIU/mL (0.32-4.0); Total Protein 7.1 g/dL (6.5-8.0)
[2022-10-17 10:25] LABS: Creatinine Urine 37.61 mg/dL; Total Protein Urine Random < 7 mg/dL (<12)
[2022-10-18 22:58] LABS: Complement C3 116 mg/dL (83-193)
[2022-10-19 12:58] LABS: Cyclic Citrullinated Peptide <16 UNITS
[2022-10-20 02:28] LABS: TS Negative Control Passed; TS Panel A 0; TS Panel B 1; TS Positive Control Passed; TSpotTB Negative (Negative)
[2022-10-20 04:44] LABS: Anti DNA DS Antibody <1 IU/mL; Antibody to SS-A Antigen <1.0 NEG AI (<1.0 NEG); Antibody to SS-B Antigen <1.0 NEG AI (<1.0 NEG)
[2022-10-20 04:44] LABS: Cardiolipin IgG Ab <2.0 GPL-U/mL; Cardiolipin IgM Ab <2.0 MPL-U/mL
[2022-10-24 00:13] LABS: PTT (LAC) Screen 34 sec (<=40)
[2022-10-24 14:59] LABS: Prot Elec - Albumin 4.5 g/dL (3.8-4.8); Prot Elec - Alpha1 0.3 g/dL (0.2-0.3); Prot Elec - Alpha2 0.9 g/dL (0.5-0.9); Prot Elec - Beta 1 0.5 g/dL (0.4-0.6); Prot Elec - Beta 2 0.3 g/dL (0.2-0.5); Prot Elec - Gamma 0.8 g/dL (0.8-1.7); Prot Elec - Total Protein 7.2 g/dL (6.1-8.1)
[2022-10-24 19:48] LABS: Beta-2 Glycoprotein IgA <2.0 U/mL (<20.0); Beta-2 Glycoprotein IgG <2.0 U/mL (<20.0); Beta-2 Glycoprotein IgM <2.0 U/mL (<20.0)
[2022-10-25 07:08] LABS: IgA 284 mg/dL (70-320); IgG 793 mg/dL (600-1540); IgM 81 mg/dL (50-300)
== END 2022-10-17 08:33 | disposition home or self-care (01) ==
LOC: HO.10HDL 08:32
PROVIDERS: Visit Provider Student in an Organized Health Care Education/Training Program
DX: Z11.7 Encounter for testing for latent tuberculosis infection (principal); Z11.59 Encounter for screening for other viral diseases; M32.9 Systemic lupus erythematosus, unspecified; M67.911 Unspecified disorder of synovium and tendon, right shoulder; M81.0 Age-related osteoporosis without current pathological fracture; M47.22 Other spondylosis with radiculopathy, cervical region; M05.9 Rheumatoid arthritis with rheumatoid factor, unspecified
CPT/HCPCS: 36415; 80053; 81001; 82550; 82784; 84156; 84165; 84443; 85025; 85597; 85613; 85652; 85730; 86140; 86146; 86147; 86160; 86200; 86225; 86235; 86334; 86431; 86481; 86704; 86706; 86709; 86803; 87340

== ENCOUNTER → 2022-11-28 07:55 | Outpatient (BNVA) | payer MEDICAID, SELFPAY | PROVIDERS: PCP Internal Medicine; Visit Provider Student in an Organized Health Care Education/Training Program | DX: M32.9 Systemic lupus erythematosus, unspecified (principal); M81.8 Other osteoporosis without current pathological fracture; M79.7 Fibromyalgia | CPT/HCPCS: 99212 ==

== ENCOUNTER → 2023-02-27 07:28 | Outpatient (REF) | payer MEDICAID, SELFPAY ==
--- NOTE | 2023-02-27 08:26 | ECG_ITS ---
Test Reason : ca arrhythmia Blood Pressure : / mmHG Vent. Rate : 061 BPM Atrial Rate : 061 BPM P-R Int : 128 ms QRS Dur : 118 ms QT Int : 438 ms P-R-T Axes : 023 045 025 degrees QTc Int : 440 ms Sinus rhythm with Premature atrial complexes Incomplete right bundle branch block Borderline ECG No previous ECGs available Referred By: Krunal Meza Electronically Signed By:BRONWYN HARGROVE MD
== END ==
LOC: HO.CARD 07:28
PROVIDERS: PCP Internal Medicine; Visit Provider Student in an Organized Health Care Education/Training Program
DX: M32.9 Systemic lupus erythematosus, unspecified (principal); M81.8 Other osteoporosis without current pathological fracture; M79.7 Fibromyalgia; I49.9 Cardiac arrhythmia, unspecified; I10 Essential (primary) hypertension
CPT/HCPCS: 93005; 99212

== ENCOUNTER 2023-03-20 15:38 | Outpatient (REF) | payer MEDICAID, SELFPAY ==
--- NOTE | ~2023-03-20 | XR_ITS ---
EXAMINATION: XR CERVICAL SPINE CLINICAL INFORMATION: Pain COMPARISON: Previous MRI December 2020 and x-ray October 2020 TECHNIQUE: 5 views of the cervical spine including bilateral oblique views were obtained. FINDINGS: There is mild 3 mm anterior subluxation of C3 with respect to C4. Bone alignment is otherwise normal. Multilevel degenerative spondylosis and degenerative disc disease at C3-C4 and C4-C5. Mild disc space narrowing at C5-C6 and C6-C7. Right-sided neuroforaminal narrowing from bony osteophyte at C3-C4, C5-C6 and C6-C7. Left-sided neuroforaminal narrowing from bony osteophyte at C3-C4, C4-C5 and C6-C7. Prevertebral soft tissues are normal. XR/XR cervical spine 5V IMPRESSION: Degenerative changes.
--- NOTE | ~2023-03-20 | XR_ITS ---
EXAMINATION: XR SHOULDER, LEFT CLINICAL INFORMATION: Pain COMPARISON: None available. TECHNIQUE: AP external rotation, Grashey, scapular Y, and axillary views of the left shoulder. FINDINGS: Bone alignment is normal. No fracture or dislocation. Normal glenohumeral joint. Arthritis at the acromioclavicular joint. Degenerative changes in the greater tuberosity. Normal soft tissues. XR/XR shoulder LT min 2V IMPRESSION: Arthritis at the acromioclavicular. Degenerative changes in the greater tuberosity.
[2023-03-20 15:54] LABS: MANUAL DIFF FLAG NO
[2023-03-20 17:25] LABS: Basophils Percent Auto 0.8 % (0-2); Eosinophils Absolute Auto 0.2 X10*3/uL (0.0-0.4); Eosinophils Percent Auto 3.7 % (0-4); Hematocrit 38.5 % (37.0-47.0); Hemoglobin 13.1 g/dl (12.0-16.0); Imm Gran Abs Auto 0.01 X10*3/uL (0.00-0.03); Imm Gran Pct Auto 0.2 % (0.0-0.4); Lymphocytes Absolute Auto 1.7 X10*3/uL (1.2-4.9); Lymphocytes Percent Auto 34.1 % (20-40); Mean Corpuscular Hemoglobin 31.3 pg (27.0-33.0); Mean Corpuscular Volume 91.9 fL (80.0-98.0); Mean Platelet Volume 9.7 fL (9.4-12.3); Monocytes Absolute Auto 0.4 X10*3/uL (0.1-1.2); Neutrophils Absolute Auto 2.6 x10*3/uL (2.0-8.3); Neutrophils Percent Auto 53.2 % (45-73); Platelet Count 119 X10*3/uL (160-400); Red Blood Count 4.19 X10*6/uL (4.20-5.50); Red Cell Distribution Width 11.3 % (11.0-16.0); White Blood Count 4.9 X10*3/uL (4.8-10.8)
[2023-03-20 18:09] LABS: Alanine Aminotransferase 26 U/L (0-31); Albumin Level 4.8 g/dL (3.5-5.0); Alkaline Phosphatase 42 U/L (39-117); Anion Gap 14 (12-20); Aspartate Amino Transferase 37 U/L (5-31); Bilirubin Total 0.6 mg/dL (0.0-1.0); Blood Urea Nitrogen 15 mg/dL (9-16); C Reactive Protein < 0.10 mg/dL (< or = 0.50); Calcium 10.1 mg/dL (8.4-10.2); Carbon Dioxide 27 mmol/L (22-29); Chloride 103 mmol/L (96-108); Estimated Glomerular Filt Rate > 60; Glucose Random 89 mg/dL (60-115); Potassium 3.9 mmol/L (3.3-5.1); Sodium 140 mmol/L (135-145); Total Protein 7.7 g/dL (6.5-8.0)
[2023-03-20 18:22] LABS: Erythrocyte Sedimentation Rate 19 MM/HR (0-20)
[2023-03-20 18:34] LABS: Vitamin B12 1273 pg/mL (200-900)
[2023-03-30 15:54] LABS: Anti Nuclear Antibody Pattern Nuclear, Nucleolar; Anti Nuclear Antibody Screen POSITIVE (NEGATIVE); Anti Nuclear Antibody Titer 1:40 titer
== END 2023-03-20 15:39 | disposition home or self-care (01) ==
LOC: HO.LAB 15:38
PROVIDERS: PCP Internal Medicine; Visit Provider Internal Medicine
DX: M54.2 Cervicalgia (principal); M25.512 Pain in left shoulder
CPT/HCPCS: 36415; 72050; 73030; 80053; 82607; 85025; 85652; 86038; 86039; 86140

== ENCOUNTER 2023-05-01 07:29 | Outpatient (REF) | payer MEDICAID, SELFPAY ==
--- NOTE | ~2023-05-01 | MM_ITS ---
EXAMINATION: BONE DENSITOMETRY CLINICAL INDICATION: Age-related osteoporosis without current pathological fracture. COMPARISON: Previous BD dated 10/31/2020 and baseline BD dated 08/17/2010. TECHNIQUE: Using a [employer] DXA System (software version: 13.1) manufactured by [employer], dual-energy x-ray absorptiometry was performed of the lumbar spine and left hip. The images are of good technical quality. Summary results are attached. FINDINGS: LEFT FEMUR, NECK: Current: BMD 0.683 g/cm2, Z-score -1.2, T-score -2.6, osteoporosis. Prior: BMD 0.673 g/cm2. Baseline: BMD 0.752 g/cm2. LEFT FEMUR, TOTAL: Current: BMD 0.733 g/cm2, Z-score -1.1, T-score -2.2, osteopenia, 9.6% increase from previous, 0.8% increase from baseline (<5% change is not significant). Prior: BMD 0.669 g/cm2. Baseline: BMD 0.727 g/cm2. AP SPINE L1-L4 (excluding L2 and L3): The data of L1-L4 has been changed to exclude the L2 and L3 vertebral bodies, because degenerative sclerosis at these levels may cause overestimation of lumbar spine density. Current: BMD 0.944 g/cm2, Z-score -0.4, T-score -1.8, osteopenia, 1.6% increase from previous, 6.9% increase from baseline (<5% change is not significant). Prior: BMD 0.929 g/cm2. Baseline: BMD 0.883 g/cm2. IDENTIFIED RISK FACTORS: Early menopause, history of fracture (adult), left oophorectomy, secondary osteoporosis. HISTORY OF FRACTURE: Wrist. MEDICATIONS: Calcium, vitamin D. MM/XR DEXA axial skeleton IMPRESSION: 1. DIAGNOSIS: Severe osteoporosis based on the lowest T-score value of -2.6 in the femoral neck and history of fracture of wrist applying World Health Organization criteria. 2. 10-YEAR FRACTURE RISK PREDICTION, FRAX: According to the guidelines, FRAX calculation should only be performed on patients in the osteopenia bone density category. Therefore, FRAX was not performed on this patient. 3. Treatment Recommendations: NOF guidelines recommend consideration for treatment in postmenopausal women and men age 50 and older presenting with the following: -A hip or vertebral (clinical or morphometric) fracture. -T-score less than or equal to -2.5 at the femoral neck or spine after appropriate evaluation to exclude secondary causes. -Low bone mass at the hip or spine and a 10-year fracture probability by FRAX of greater than or equal to 3% for hip fracture or greater than or equal to 20% for major osteoporotic fracture based on the [place] adapted WHO algorithm. 4. Other Recommendations: All treatment decisions require clinical judgment and consideration of individual patient factors, including patient preferences, comorbidities, previous drug use, risk factors not captured in the FRAX model (e.g. frailty, falls, vitamin D deficiency, increased bone turnover, interval significant decline in bone density) and possible under or overestimation of fracture risk by FRAX. Additional medical evaluation for secondary cause of low bone mineral density may be appropriate. FUTURE SCAN RECOMMENDATION: People with diagnosed cases of osteoporosis or at high risk for fracture should have regular bone mineral density tests. For patients eligible for Medicare, routine testing is allowed once every 2 years. The testing frequency can be increased to one year for patients who have rapidly progressing disease, those who are receiving or discontinuing medical therapy to restore bone mass, or have additional risk factors.
--- NOTE | ~2023-05-01 | MM_ITS ---
EXAMINATION: MM SCREENING DIGITAL BREAST TOMOSYNTHESIS, BILATERAL CLINICAL INFORMATION: Screening. Asymptomatic. The lifetime risk of breast cancer based on the Tyrer-Cuzick Model is 3%. COMPARISON: Mammography: This study is compared with prior exams dating back to 2015. TECHNIQUE: Digital breast tomosynthesis is performed in both the craniocaudal and mediolateral oblique views along with computer-aided detection (CAD). Synthesized 2D images are generated from the tomosynthesis. FINDINGS: There are scattered areas of fibroglandular density (ACR BI-RADS breast composition Category b). There are no significant masses, abnormal calcifications, or other abnormalities. MM/MM tomosynthesis screening BI IMPRESSION: No mammographic evidence of malignancy. ASSESSMENT: BI-RADS BI-RADS 1 - Negative RECOMMENDATION: Routine annual mammography screening. 1 year F/U This examination should not preclude the clinical evaluation of a suspicious palpable abnormality. This patient's information was entered into a reminder system with a target due date for their next mammogram.
== END 2023-05-01 07:30 | disposition home or self-care (01) ==
LOC: HO.MAMMO 07:29
PROVIDERS: PCP Internal Medicine; Visit Provider Student in an Organized Health Care Education/Training Program
DX: Z12.31 Encounter for screening mammogram for malignant neoplasm of breast (principal); Z13.820 Encounter for screening for osteoporosis; Z78.0 Asymptomatic menopausal state; M81.0 Age-related osteoporosis without current pathological fracture; M47.812 Spondylosis without myelopathy or radiculopathy, cervical region; M50.30 Other cervical disc degeneration, unspecified cervical region; M48.02 Spinal stenosis, cervical region; G89.4 Chronic pain syndrome
CPT/HCPCS: 77063; 77067; 77080; 77081; 99202

== ENCOUNTER → 2023-05-01 08:00 | Outpatient (BNV) | payer MEDICAID, SELFPAY | PROVIDERS: PCP Internal Medicine; Visit Provider Radiology Diagnostic Radiology | DX: Z12.31 Encounter for screening mammogram for malignant neoplasm of breast (principal) | CPT/HCPCS: 77063; 77067 ==

== ENCOUNTER 2023-06-18 05:57 | Outpatient (REF) | payer MEDICAID, SELFPAY ==
--- NOTE | ~2023-06-18 | FL_ITS ---
EXAMINATION: XR FLUOROSCOPY WITH IMAGES CLINICAL INFORMATION: Spinal stenosis, cervical region. COMPARISON: None available. TECHNIQUE: Fluoroscopy Supervised By: Dr. Fidel Romero. Fluoroscopy Time: 1.0 minutes. Cumulative Dose: 9.2 mGy. DAP: 0.107 Gycm2. Images: 8. FINDINGS: Fluoroscopy guidance provided for bilateral, posterior lateral cervical epidural injection. FL/FL guidance in treatment room IMPRESSION: Fluoroscopy guidance for pain management procedure.
== END 2023-06-18 05:58 | disposition home or self-care (01) ==
LOC: CF 05:57
PROVIDERS: Visit Provider Anesthesiology
DX: M47.812 Spondylosis without myelopathy or radiculopathy, cervical region (principal); M50.30 Other cervical disc degeneration, unspecified cervical region; M48.02 Spinal stenosis, cervical region; G89.4 Chronic pain syndrome
CPT/HCPCS: 64490; 64491; J2795; J3301; Q9967

== ENCOUNTER 2023-06-18 07:20 | Outpatient (AMB) | payer MEDICAID, SELFPAY ==
[2023-06-18 07:24] VITALS: BP 140/62; PULSE 50; RESP 14; O2SAT 99; BMI 25.1
--- NOTE | 2023-06-18 07:24 | A.OFFVIS_ITS ---
Intake Vital Signs 06/18/23 07:24 06/18/23 08:31 Height 5 ft 4 in 5 ft 4 in Weight 146 lb 146 lb BMI 25.1 25.1 BP 140/62 H 126/72 Blood Pressure Location Rt brachial Lt brachial Position Sitting Sitting Respiration 14 14 Pulse 50 61 Pulse Source Pulse Oximeter Pulse Oximeter Pulse Oximetry (%) 99 99 Oxygen Delivery Method Room Air Room Air Comment pre-op post-op Intake Visit Reasons: BILAT C4-C5-C6 THERAPEUTIC MBB/LOCAL Allergies Seasonal Allergies Allergy (Verified 06/18/23 07:25) sneezing [facility] Medical History (Updated 05/01/23 @ 09:56 by Fidel Romero MD) Cervical stenosis of spinal canal Encounter for testing for latent tuberculosis infection Hx of fracture of wrist Hx of ovarian cancer Leukopenia Lupus (systemic lupus erythematosus) Osteoporosis Polyarthralgia Screening for viral disease Thrombocytopenia Surgical History H/O colonoscopy H/O esophagogastroduodenoscopy Hx of removal of ovary Family History Paternal Grandmother Ovarian cancer Maternal Grandmother H/O heart bypass surgery Maternal Grandfather Heart attack Mother Asthma HTN (hypertension) Hyperlipidemia Father HTN (hypertension) Hyperlipidemia Social History Household Members: None Alcohol intake: former Patient Tobacco Use Status: Former Tobacco user Quit Date: 1982 e-Cigarette/Vaping Use: Never Used Second Hand Smoke Exposure: No Substance Use Type: Marijuana Current occupational status: employed 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 ?Informed consent was explained to the patient. All questions were explained and answered.? The patient was taken inside the operating room where she was positioned prone on the operating table. Time-out was performed delineating correct site, side, the nature of the pr ocedure, patient's allergy, preoperative antibiotic if needed.? All operating room staff was participating in OR time-out procedure. The back of the neck and upper back were prepped with ChloraPrep and draped with sterile towels.? Sterilely draped C-arm was brought over the operating field and sq picture of? C4-C5-C6 vertebrae were delineated on the screen.? Points of interest were delineated as lateral masses bilaterally of the vertebrae as above. The waste of each lateral mass was chosen as the target of the tip of the needles on AP view and lateral view was used as a safety view for the tips of the needles position.?? The projections of the point of interest to the skin were injected with the small amount of local anesthetic lidocaine 2% 1-1.5 cc.? After that 22 gauge 3and 1/2 inch? spinal needles were driven to the point of interest in tunnel vision fashion. After needles gently contacted the bone at the point of interests the needle was injected with small amount of the contrast. The injections did not demonstrate intravascular or intrathecal spread.. After that ropivacaine 0.5%-1cc. mixed with kenalog was injected into each location of the needles. ( total dose of Kenalog was 40 mgs).? Upon completion of the injections the needles were removed and sterile dressings were applied, the patient was a taken? outside of the operating room to recovery room where she recovered uneventfully. (2) Degeneration, intervertebral disc, cervical: Code(s): M50.30 - Other cervical disc degeneration, unspecified cervical region (3) Cervical stenosis of spinal canal: Code(s): M48.02 - Spinal stenosis, cervical region (4) Chronic pain syndrome: Code(s): G89.4 - Chronic pain syndrome Plan There are multiple changes on this patient's MRI which could be a subject to referral to a neurosurgeon. However the Lhermitte is negative and Spurling test is negative which gives me hope that some sort of her symptoms are related to mostly facet arthropathy. I offered this patient bilateral therapeutic C4-C5 C6 medial branch block without sedation. I will send her to neurosurgical evaluation to Dr. Causey if the injection will the resulted in no improvement in the pain in her neck. I will start her on tizanidine 2 mg b.i.d. to help her pain. Orders: Orders FL guidance in treatment room Today M48.02 - Spinal stenosis, cervical region Sharon Ugarte APRN, [employer] Referrals Neuro Spine Referral G89.4 - Chronic pain syndrome, M47.812 - Spondylosis without myelopathy or radiculopathy, cervical region, M48.02 - Spinal stenosis, cervical region, M50.30 - Other cervical disc degeneration, unspecified cervical region Fidel Romero MD Coding Level of Care Code Procedure Only Diagnoses Spondylosis of cervical spine M47.812 Degeneration, intervertebral disc, cervical M50.30 Cervical stenosis of spinal canal M48.02 Chronic pain syndrome G89.4
[2023-06-18 08:31] VITALS: BP 126/72; PULSE 61; RESP 14; O2SAT 99; BMI 25.1
== END 2023-06-18 08:21 | disposition home or self-care (01) ==
LOC: HO.PMCPRC 07:20
PROVIDERS: PCP Internal Medicine; Visit Provider Anesthesiology
DX: M47.812 Spondylosis without myelopathy or radiculopathy, cervical region (principal)
CPT/HCPCS: 64490; 64491

== ENCOUNTER 2023-06-27 07:45 | Outpatient (REF) | payer MEDICAID, SELFPAY ==
[2023-06-27 08:15] LABS: MANUAL DIFF FLAG NO
[2023-06-27 08:37] LABS: Basophils Percent Auto 0.7 % (0-2); Eosinophils Absolute Auto 0.1 X10*3/uL (0.0-0.4); Eosinophils Percent Auto 1.5 % (0-4); Hematocrit 36.8 % (37.0-47.0); Hemoglobin 12.8 g/dl (12.0-16.0); Imm Gran Abs Auto 0.02 X10*3/uL (0.00-0.03); Imm Gran Pct Auto 0.3 % (0.0-0.4); Lymphocytes Absolute Auto 1.1 X10*3/uL (1.2-4.9); Lymphocytes Percent Auto 17.8 % (20-40); Mean Corpuscular HGB Conc 34.8 g/dl (31.0-35.0); Mean Corpuscular Hemoglobin 30.7 pg (27.0-33.0); Mean Corpuscular Volume 88.2 fL (80.0-98.0); Mean Platelet Volume 9.6 fL (9.4-12.3); Monocytes Absolute Auto 0.5 X10*3/uL (0.1-1.2); Neutrophils Absolute Auto 4.2 x10*3/uL (2.0-8.3); Neutrophils Percent Auto 70.7 % (45-73); Platelet Count 121 X10*3/uL (160-400); Red Blood Count 4.17 X10*6/uL (4.20-5.50); Red Cell Distribution Width 11.7 % (11.0-16.0)
[2023-06-27 08:57] LABS: Alanine Aminotransferase 16 U/L (0-31); Albumin Level 4.4 g/dL (3.5-5.0); Alkaline Phosphatase 39 U/L (39-117); Anion Gap 12 (12-20); Aspartate Amino Transferase 21 U/L (5-31); Bilirubin Total 0.4 mg/dL (0.0-1.0); Blood Urea Nitrogen 18 mg/dL (9-16); C Reactive Protein < 0.04 mg/dL (< or = 0.50); Calcium 9.5 mg/dL (8.4-10.2); Carbon Dioxide 24 mmol/L (22-29); Chloride 108 mmol/L (96-108); Estimated Glomerular Filt Rate > 60; Glucose Random 96 mg/dL (60-115); Potassium 3.5 mmol/L (3.3-5.1); Sodium 140 mmol/L (135-145); Total Protein 7.1 g/dL (6.5-8.0)
[2023-06-27 09:18] LABS: Erythrocyte Sedimentation Rate 8 MM/HR (0-20)
[2023-06-27 10:39] LABS: Creatinine Urine 209.34 mg/dL; Protein/Creatinine Ratio, Ur 0.07 (<0.2); Total Protein Urine Random 14 mg/dL (<12)
[2023-06-27 11:24] LABS: Appearance Urine Clear; Color Urine Yellow; Glucose Urine UA Negative (Negative); Leukocyte Esterase Urine Negative (Negative); Nitrite Urine Negative (Negative); PH 5.5 (5.0-9.0); Specific Gravity - Urine >= 1.030 (1.005-1.025); UMIC TRIGGER UA YES; Urine Blood Negative (Negative); Urine Ketones Negative (Negative); Urine Protein 30 (1+) mg/dL (Neg-Trace)
[2023-06-27 11:36] LABS: Bacteria Urine None Seen (None Seen); Hyaline Casts Urine 0-2 /LPF (0-2); RBC Urine 0-2 /HPF (0-2); Squamous Epithelial Cell Urine 0-2 /HPF (0-2); WBC Urine 0-5 /HPF (0-5)
[2023-06-28 13:43] LABS: Complement C3 121 mg/dL (83-193)
[2023-07-02 13:23] LABS: Anti DNA DS Antibody <1 IU/mL
== END 2023-06-27 07:46 | disposition home or self-care (01) ==
LOC: HO.LAB 07:45
PROVIDERS: PCP Internal Medicine; Visit Provider Student in an Organized Health Care Education/Training Program
DX: M32.9 Systemic lupus erythematosus, unspecified (principal)
CPT/HCPCS: 36415; 80053; 81001; 84156; 85025; 85652; 86140; 86160; 86225

== ENCOUNTER 2023-07-03 07:52 | Outpatient (AMB) | payer MEDICAID, SELFPAY ==
[2023-07-03 08:01] VITALS: BP 160/70; PULSE 57; TEMP 36.3; O2SAT 99; BMI 24.0
--- NOTE | 2023-07-03 08:01 | A.OFFVIS_ITS ---
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 Hand Required: No Accompanied by: Self / Same As Patient Allergies Seasonal Allergies Allergy (Verified 07/03/23 08:06) sneezing Medication List - Last Reconciled 07/03/23 by Krunal Meza MD acetaminophen ER (Tylenol Arthritis Pain) 1,300 mg PO Q12H PRN alendronate 70 mg PO QWEEK cholecalciferol (vitamin D3) 25 mcg PO DAILY hydroxychloroquine 300 mg (1.5 x 200 mg) PO DAILY omega 3-wdf-qxm-fish oil 1,000 mg (120 mg-180 mg) (Fish Oil) 1 cap PO BID turmeric mg PO vitamin B complex (B Complex-Vitamin B12 tablet) 1 tab PO DAILY vitamin C-biotin 50 mg -1,250 mcg (Ozdk-Slmt-Fchxp (vit C-biotin)) 1 tab PO DAILY HPI HPI Comments History of Present Illness Details 63-year-old female with mild SLE presents for follow-up. She continues to complain of generalized diffuse pain. She has diffuse pain in her neck, shoulders, elbows, wrists, Lower back. She has difficulty carrying stuff with her hands. Continues to have generalized fatigue. Feels that she needs energy and sugary drinks. She was evaluated by Pain Management and had a procedure, it was not helpful. She has a follow-up appointment 2 weeks Initial history: This is a 62-year-old female with SLE (arthralgias, positive CAIT, low C3, low C4, leukopenia, thrombocytopenia) who presents for evaluation of SLE and osteoporosis. Patient was last seen by Dr. Khan last year since then she followed up with another project geologist Dr. Stephens, she is transferring her care back to [place]. Patient continues to have some pain and weakness in her neck and shoulders. Difficulty doing certain activities such as opening and closing doors, opening and closing jars. Low back pain with sitting down and standing up. Denies any joint swelling. Denies any skin rashes, blood or frothy urine. Denies any oral or genital ulcers. Patient states she had menopause in her 40s. She broke both her wrists around age 52 when she fell backwards. She also stated that she might have injured both elbows then to but that did not require any intervention. [facility] Medical History Cervical stenosis of spinal canal Encounter for testing for latent tuberculosis infection Hx of fracture of wrist Hx of ovarian cancer Leukopenia Lupus (systemic lupus erythematosus) Osteoporosis Polyarthralgia Screening for viral disease Thrombocytopenia Surgical History H/O colonoscopy H/O esophagogastroduodenoscopy Hx of removal of ovary Family History Paternal Grandmother Ovarian cancer Maternal Grandmother H/O heart bypass surgery Maternal Grandfather Heart attack Mother Asthma HTN (hypertension) Hyperlipidemia Father HTN (hypertension) Hyperlipidemia Social History Household Members: None Alcohol intake: former Patient Tobacco Use Status: Former Tobacco user Quit Date: 1982 e-Cigarette/Vaping Use: Never Used Second Hand Smoke Exposure: No Substance Use Type: Marijuana Current occupational status: employed 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 Review of Systems Const Reports fatigue Musc Reports arthralgias, Reports muscle weakness and Reports stiffness Psych Reports abnormal sleep pattern Endo Reports fatigue Physical Exam Vital Signs: Last Vital Signs Temp 97.3 F 07/03/23 08:01 Pulse 57 07/03/23 08:01 BP 160/70 H 07/03/23 08:01 Pulse Ox 99 07/03/23 08:01 BMI result Body Mass Index 24.0 Const General: cooperative, healthy appearing, comfortable, no acute distress and well developed Nutritional Appearance: average body habitus Orientation/consciousness: patient oriented x3 Limitations: no limitations HEENT Head: Yes normocephalic and Yes atraumatic Mouth: moist mucous membranes Resp Effort & Inspection: normal respiratory effort and able to speak in complete sentences Auscultation: clear to auscultation bilaterally Cardio Rate: regular rate Rhythm: regular rhythm GI Inspection: No distended Palpation (GI): Soft to palpation and nontender Neuro General: patient oriented x3 Extrem Other: Bilateral elbow contracture, mild right elbow pain with full extension Osteoarthritic changes of both hands with prominent Heberden's and Danita's nodes proximal muscle strength 5/5 all 4 extremities Diffuse fibromyalgia tender points Assessment & Plan Assessment & Plan (1) Lupus (systemic lupus erythematosus): Code(s): M32.9 - Systemic lupus erythematosus, unspecified Qualifiers: Systemic lupus erythematosus type: unspecified Systemic lupus erythematosus organ involvement: unspecified Qualified Code(s): M32.9 - Systemic lupus erythematosus, unspecified Plan: Lupus diagnosed based on positive CAIT, leukopenia, thrombocytopenia, low complements. Patient on Plaquenil 300 mg daily (weight based) since December 2020. she is following regularly with Ophthalmology. She was already evaluated by Hematology for her cytopenias, this is likely due to her underlying autoimmune issues. Her labs are stable. She will continue Plaquenil 300 mg daily Follow-up regularly with Ophthalmology (2) Osteoporosis: Code(s): M81.0 - Age-related osteoporosis without current pathological fracture Qualifiers: Osteoporosis type: other Presence of current pathological fracture: without current pathological fracture Qualified Code(s): M81.8 - Other osteoporosis without current pathological fracture Plan: Repeat DEXA 04/2023 shows some improvement compared to 04/2021. On alendronate weekly since 2020. Continue alendronate for a total of 5 years, repeat DEXA in 04/2026 (3) Fibromyalgia, primary: Code(s): M79.7 - Fibromyalgia Plan: I feel patient does not fully comprehend the nature of fibromyalgia Discussed management of fibromyalgia with patient. Is a noninflammatory, non- autoimmune central afferent processing disorder leading to a diffuse pain syndrome. I suggested that patient address her underlying anxiety. I suggested consulting with a psychotherapist. 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 I suggested adding some low-impact exercises such as stretching, yoga, aquatherapy, swimming, miguel-chi Patient had side effects to gabapentin in the past. Duloxetine was not helpful. We discussed Lyrica but patient prefers not to take any medications that could make her groggy. Patient would like to seek another opinion. Unfortunately Dr. Duran will be retiring soon. I suggested evaluation by Rheumatology at an outside facility. Otherwise she can follow-up with me in 6 months Plan I spent 26 minutes reviewing patient's chart, evaluating patient counseling patient and documenting in the chart Coding Level of Care Code Est Pt Level 4 (31741) Diagnoses Lupus (systemic lupus erythematosus) M32.9 Systemic lupus erythematosus type: unspecified Systemic lupus erythematosus organ involvement: unspecified Osteoporosis M81.8 Osteoporosis type: other Presence of current pathological fracture: without current pathological fracture Fibromyalgia, primary M79.7
== END 2023-07-03 08:33 | disposition home or self-care (01) ==
PROVIDERS: PCP Internal Medicine; Visit Provider Student in an Organized Health Care Education/Training Program
DX: M32.9 Systemic lupus erythematosus, unspecified (principal); M81.8 Other osteoporosis without current pathological fracture; M79.7 Fibromyalgia
CPT/HCPCS: 99214

== ENCOUNTER → 2023-07-03 07:52 | Outpatient (BNVA) | payer MEDICAID, SELFPAY | PROVIDERS: PCP Internal Medicine; Visit Provider Student in an Organized Health Care Education/Training Program | DX: M32.9 Systemic lupus erythematosus, unspecified (principal); M81.8 Other osteoporosis without current pathological fracture; M79.7 Fibromyalgia | CPT/HCPCS: 99212 ==

== ENCOUNTER 2023-07-25 08:12 | Outpatient (AMB) | payer MEDICAID, SELFPAY ==
--- NOTE | 2023-07-25 08:20 | MHC.OFFVIS ---
Intake Vital Signs 07/25/23 08:21 Height 5 ft 4 in Weight 138 lb BMI 23.7 BP 140/78 H Blood Pressure Location Lt brachial Position Sitting Respiration 16 Pulse 58 Pulse Source Pulse Oximeter Pulse Oximetry (%) 97 Oxygen Delivery Method Room Air Intake Visit Reasons: BILAT C4-C5-C6 THERA MBB 06/18/23/LVM Intake Note: patient comes in for post-op. Allergies Seasonal Allergies Allergy (Verified 07/25/23 08:21) sneezing HPI HPI Comments History of Present Illness Details Verenice is back in my office after the therapeutic MBB B/l C4-C5-C6. She denies help from the injection. She is referred to neurosurgery. In 2020 she had an MRI of the cervical spine with spondylolistesis up to 4 mm and moderate to severe central canal stenosis. She needs to be seen by a neurosurgery after the MRI, if her spinal canal stenosis progressed over the course of 2 years the stabilization surgery of the cervical spine needs to be taken into a serious consideration. This was discussed with the patient. Prior: complains on pain in the neck bilateral upper shoulders bilateral lower shoulders bilateral upper arms posterior neck posterior back bilateral feet. In the past she was patient of Dr. Khan. Currently she is also patient of Dr. Meza rheumatology with D-x SLE and immunosuppression. 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 most of her pain in the neck she feels like bricks laid on on her shoulders and anterior chest bilaterally. She tried physical therapy in the past without significant help she went for 3 or 4 sessions of physical therapy however she denied any help from physical therapy. She is currently taking Plaquenil and alendronate. . She had an MRI of the cervical spine results of which dictated as below. [facility] Medical History Cervical stenosis of spinal canal Encounter for testing for latent tuberculosis infection Hx of fracture of wrist Hx of ovarian cancer Leukopenia Lupus (systemic lupus erythematosus) Osteoporosis Polyarthralgia Screening for viral disease Thrombocytopenia Surgical History H/O colonoscopy H/O esophagogastroduodenoscopy Hx of removal of ovary Family History Paternal Grandmother Ovarian cancer Maternal Grandmother H/O heart bypass surgery Maternal Grandfather Heart attack Mother Asthma HTN (hypertension) Hyperlipidemia Father HTN (hypertension) Hyperlipidemia Social History Household Members: None Alcohol intake: former Patient Tobacco Use Status: Former Tobacco user Quit Date: 1982 e-Cigarette/Vaping Use: Never Used Second Hand Smoke Exposure: No Substance Use Type: Marijuana Current occupational status: employed 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 Review of Systems Const All systems reviewed & are unremarkable except as noted in HPI and below ENT Reports Normal hearing present Neuro Reports Normal hearing present, Denies Abnormal speech present and Denies Sensory deficit (Neuro) Physical Exam Vital Signs: Last Vital Signs Pulse 58 07/25/23 08:21 Resp 16 07/25/23 08:21 BP 140/78 H 07/25/23 08:21 Pulse Ox 97 07/25/23 08:21 Oxygen Delivery Method Room Air 07/25/23 08:21 BMI result Body Mass Index 23.7 Const General: no acute distress Orientation/consciousness: patient oriented x3 Eyes General: appearance normal, both eyes and all related structures Pupils: Equal, round and reactive pupils present EOM: EOMs intact bilaterally Neck Other: Limited range of motion on the neck. Tenderness of palpation paraspinal spinal region of these cervical spine unable to flex her head backwards due to severe pain. Forward movements without difficulty. Lhermitte test and Spurling tests are negative for pain increase. Sulfa maneuver is negative for pain increase. Reports awkwardness and weakness in bilateral upper extremities. Neck: No full ROM Chest Chest palpation & inspection: normal inspection of the chest Resp Effort & Inspection: normal respiratory effort, able to speak in complete sentences, normal respiratory pattern, no audible wheezes and no cough Cardio Jugular venous distension: no JVD GI Inspection: Yes normal to inspection Neuro General: patient oriented x3 and gait normal Cranial nerves: Yes CN's II-XII intact bilaterally, Yes Equal, round and reactive pupils present, Yes Normal hearing present and Yes Ability to bilaterally elevate shoulders present Speech: No Abnormal speech present Gait exam (Neuro): Normal gait present Motor exam (neuro): 5/5 motor strength present throughout Sensory Exam: No Sensory deficit (Neuro) Extrem General: No pedal edema Psych Speech and movement: Normal speech and movement present Affect: normal affect Attitude: cooperative Thought process: Normal thought process present Thought content: Normal thought content present Insight: Good insight present (Psych) Judgement: Good judgement present (Psych) Results Reviewed Results Reviewed: MRI MRI cervical spine 01/13/2021. Findings: Cervical vertebral bodies maintain normal height. There is progressive grade 1 anterolisthesis of C3 on C4 measuring up to 4 mm with alignment otherwise in maintain. There is multilevel intervertebral disc height loss predominantly at C3-C4 and C4-C5 levels. The cervical cord signal appears normal. Spinal levels: C2-C3 no posterior disc abnormality. No spinal canal or or neural foraminal stenosis. C3-C4: Progressive anterolisthesis with disc osteophyte complex and ligamentum flavum infolding resulting in progressive now moderate to severe spinal canal stenosis with flattening of the cord. Progressive severe facet arthropathy in combination with uncovertebral hypertrophy resulting in new severe bilateral neural foraminal stenosis. C4-C5: Disc osteophyte complex with uncovertebral hypertrophy and progressive moderate bilateral facet arthropathy resulting in moderate to severe spinal canal stenosis and severe lateral left more than right neural foraminal stenosis. C5-C6 disc osteophyte complex with uncovertebral hypertrophy and mild facet arthropathy resulting in progressive moderate spinal canal stenosis in progressive moderate to severe bilateral neural foraminal stenosis. C6-C7 no posterior disc abnormality. Right foraminal protrusion with uncovertebral hypertrophy mildly narrows the right neural foramen. Similar to prior. C7-T1: No posterior disc abnormality no spinal canal or neural foraminal stenosis. Assessment & Plan Assessment & Plan (1) Chronic pain syndrome: Code(s): G89.4 - Chronic pain syndrome (2) Cervical stenosis of spinal canal: Code(s): M48.02 - Spinal stenosis, cervical region (3) Degeneration, intervertebral disc, cervical: Code(s): M50.30 - Other cervical disc degeneration, unspecified cervical region (4) Spondylosis of cervical spine: Code(s): M47.812 - Spondylosis without myelopathy or radiculopathy, cervical region (5) Spondylolisthesis, cervical region: Code(s): M43.12 - Spondylolisthesis, cervical region (6) Leukopenia: Code(s): D72.819 - Decreased white blood cell count, unspecified Qualifiers: Leukopenia type: other Qualified Code(s): D72.818 - Other decreased white blood cell count (7) Lupus (systemic lupus erythematosus): Code(s): M32.9 - Systemic lupus erythematosus, unspecified (8) Thrombocytopenia: Comment: EGD Code(s): D69.6 - Thrombocytopenia, unspecified Plan bilateral therapeutic C4-C5 C6 medial branch block resulted in no improvement I will send her to neurosurgical evaluation to Dr. Causey. She needs to go for the fresh MRI, her D-x is cervical spinal stenosis. Last MRI 2 years ago. She has moderate trombocitopenia. last platelet count [id number] improving from prior [id number].Any manipilation within the epidural and/or intrathecal space would require platelet count prior. Orders: Orders MR cervical spine wo con 07/25/23 G89.4 - Chronic pain syndrome, M43.12 - Spondylolisthesis, cervical region, M47.812 - Spondylosis without myelopathy or radiculopathy, cervical region, M48.02 - Spinal stenosis, cervical region, M50.30 - Other cervical disc degeneration, unspecified cervical region Coding Level of Care Code Est Pt Level 4 (89000) Diagnoses Chronic pain syndrome G89.4 Cervical stenosis of spinal canal M48.02 Degeneration, intervertebral disc, cervical M50.30 Spondylosis of cervical spine M47.812 Spondylolisthesis, cervical region M43.12 Other decreased white blood cell (WBC) count D72.818 Leukopenia type: other Lupus (systemic lupus erythematosus) M32.9 Thrombocytopenia D69.6
[2023-07-25 08:21] VITALS: BP 140/78; PULSE 58; RESP 16; O2SAT 97; BMI 23.7
== END 2023-07-25 08:45 | disposition home or self-care (01) ==
PROVIDERS: PCP Internal Medicine; Visit Provider Anesthesiology
DX: G89.4 Chronic pain syndrome (principal); M48.02 Spinal stenosis, cervical region; M50.30 Other cervical disc degeneration, unspecified cervical region; M47.812 Spondylosis without myelopathy or radiculopathy, cervical region; M43.12 Spondylolisthesis, cervical region; D72.818 Other decreased white blood cell count; M32.9 Systemic lupus erythematosus, unspecified; D69.6 Thrombocytopenia, unspecified
CPT/HCPCS: 99214

== ENCOUNTER → 2023-07-25 08:12 | Outpatient (BNVA) | payer MEDICAID, SELFPAY | PROVIDERS: PCP Internal Medicine; Visit Provider Anesthesiology | DX: G89.4 Chronic pain syndrome (principal); M48.02 Spinal stenosis, cervical region; M50.30 Other cervical disc degeneration, unspecified cervical region; M47.812 Spondylosis without myelopathy or radiculopathy, cervical region; M43.12 Spondylolisthesis, cervical region; D72.818 Other decreased white blood cell count; M32.9 Systemic lupus erythematosus, unspecified; D69.6 Thrombocytopenia, unspecified; Z98.890 Other specified postprocedural states | CPT/HCPCS: 99212 ==

== ENCOUNTER 2023-11-27 07:48 | Outpatient (REF) | payer MEDICAID, SELFPAY ==
--- NOTE | ~2023-11-27 | MR_ITS ---
EXAMINATION: MR CERVICAL SPINE WITHOUT CONTRAST CLINICAL INFORMATION: Chronic pain syndrome. COMPARISON: Plain films of the cervical spine 03/20/2023. MRI scan of the cervical spine 01/13/2021. TECHNIQUE: MRI of the cervical spine was obtained using routine sequences without contrast. FINDINGS: VERTEBRAL BODIES AND PARASPINAL SOFT TISSUES: There has been slight interval increase in the anterolisthesis of C3 on C4, now measuring 3.5 mm, increased from 2.5 mm on the prior MRI scan. There is a mild anterolisthesis of C2 on C3. There is a mild retrolisthesis of C5 on C6. There is multilevel narrowing of intervertebral disc height, most severe at C4-C5 and C5-C6. There are multilevel degenerative endplate contour changes. There are mild edematous endplate signal changes at C5-C6 which have evolved compared to the prior MRI scan. Vertebral body heights are maintained, and no fractures are demonstrated. Overall, marrow signal is homogenous. There appears to be fullness of the right lobe of the thyroid gland, without a discrete nodule. CERVICOMEDULLARY JUNCTION AND VISUALIZED POSTERIOR FOSSA: The craniocervical and posterior fossa structures are normal. Accounting for artifact, spinal cord signal appears normal. SPINAL LEVELS: C2-C3: There is moderate right and mild left facet arthropathy. Posterior disc contour is normal and there is no cord compression or central stenosis. The neural foramina are patent bilaterally. C3-C4: There is moderate right and mild left facet arthropathy. There is a broad-based posterior disc protrusion with flattening of the ventral thecal sac and effacement of CSF around the spinal cord, and there is moderate to severe spinal stenosis, unchanged. There are uncovertebral osteophytes and there is moderate to severe bilateral foraminal narrowing. C4-C5: There is mild left facet arthropathy. There is a posterior disc osteophyte complex which effaces CSF around the cord and there is moderate central stenosis. There are uncovertebral osteophytes and there is moderate bilateral foraminal narrowing. C5-C6: The facet joints appear normal. There is a broad-based posterior disc osteophyte complex which effaces CSF ventral to the spinal cord, without spinal cord compression. There is moderate to severe central stenosis. There are uncovertebral osteophytes bilaterally and there is moderate to severe bilateral foraminal narrowing. C6-C7: The facet joints appear normal bilaterally. Posterior disc contour is normal and there is no cord compression or central stenosis. There are uncovertebral osteophytes and there is mild right foraminal narrowing. C7-T1: There is moderate left facet arthropathy. Posterior disc contour is normal and there is no cord compression or central stenosis. There is mild left foraminal narrowing. T1-T2: There is a broad-based posterior disc protrusion which effaces CSF ventral spinal cord, but there is no cord compression or central stenosis. There is a left-sided disc osteophyte complex narrowing the left neural foramen. MR/MR cervical spine wo con IMPRESSION: 1. At C3-C4 there has been interval increase in the anterolisthesis secondary to facet arthropathy. There is a broad-based posterior disc protrusion with flattening of the ventral thecal sac and effacement of CSF around the cord, and there is moderate to severe spinal stenosis. There is moderate to severe bilateral foraminal narrowing. 2. At C5-C6 there is a broad-based posterior disc osteophyte complex without cord compression. There is moderate to severe central stenosis. There is moderate to severe bilateral foraminal narrowing. 3. At C4-C5 there is a posterior disc osteophyte complex with moderate central stenosis. There is moderate bilateral foraminal narrowing. 4. Spondylitic and facet arthropathic changes are also demonstrated at multiple other levels as described above.
== END 2023-11-27 07:49 | disposition home or self-care (01) ==
LOC: HO.MRI 07:48
PROVIDERS: PCP Internal Medicine; Visit Provider Anesthesiology
DX: M48.02 Spinal stenosis, cervical region (principal); M50.30 Other cervical disc degeneration, unspecified cervical region; M47.812 Spondylosis without myelopathy or radiculopathy, cervical region; G89.4 Chronic pain syndrome
CPT/HCPCS: 72141

== ENCOUNTER 2024-01-01 07:33 | Outpatient (AMB) | payer MEDICAID, SELFPAY ==
[2024-01-01 07:36] VITALS: BP 146/62; PULSE 63; O2SAT 98; BMI 24.0
--- NOTE | 2024-01-01 07:36 | MHC.OFFVIS ---
Intake Vital Signs 01/01/24 07:36 Height 5 ft 4 in Weight 139 lb 8.842 oz BMI 24.0 BP 146/62 H Blood Pressure Location Rt brachial Position Sitting Pulse 63 Pulse Source Pulse Oximeter Pulse Oximetry (%) 98 Oxygen Delivery Method Room Air Intake Visit Reasons: SLE Intake Note: Patient last seen 07/03/23 presents today for follow up. C/o pain everywhere, managing with Aleve QID. For eye care she follows with [facility] [employer] Team Member Required: No Accompanied by: Self / Same As Patient Allergies Seasonal Allergies Allergy (Verified 01/01/24 07:40) sneezing Medication List - Last Reconciled 01/01/24 by Krunal Meza MD alendronate 70 mg PO QWEEK cholecalciferol (vitamin D3) 25 mcg PO DAILY hydroxychloroquine 300 mg (1.5 x 200 mg) PO DAILY naproxen sodium (Aleve) 440 mg PO QID PRN omega 8-bcd-got-fish oil 1,000 mg (120 mg-180 mg) (Fish Oil) 1 cap PO BID turmeric mg PO vitamin B complex (B Complex-Vitamin B12 tablet) 1 tab PO DAILY vitamin C-biotin 50 mg -1,250 mcg (Xffi-Ujtz-Guvym (vit C-biotin)) 1 tab PO DAILY HPI HPI Comments History of Present Illness Details 63-year-old female with mild SLE presents for follow-up. She continues to complain of generalized diffuse pain. She has diffuse pain in her neck, shoulders, elbows, wrists, Lower back. She has difficulty carrying stuff with her hands. Continues to have generalized fatigue. She feels like she is falling apart. She takes Aleve q.i.d. and does not believe it helps. Continues on hydroxychloroquine 300 mg daily. He was recently evaluated by pain management and had a cervical neck MRI. She has not had a follow-up Initial history: This is a 62-year-old female with SLE (arthralgias, positive CAIT, low C3, low C4, leukopenia, thrombocytopenia) who presents for evaluation of SLE and osteoporosis. Patient was last seen by Dr. Khan last year since then she followed up with another [place] blind worker Dr. Stephens, she is transferring her care back to [place]. Patient continues to have some pain and weakness in her neck and shoulders. Difficulty doing certain activities such as opening and closing doors, opening and closing jars. Low back pain with sitting down and standing up. Denies any joint swelling. Denies any skin rashes, blood or frothy urine. Denies any oral or genital ulcers. Patient states she had menopause in her 40s. She broke both her wrists around age 52 when she fell backwards. She also stated that she might have injured both elbows then to but that did not require any intervention. [facility] Medical History (Updated 01/01/24 @ 08:03 by Krunal Meza MD) Thrombocytopenia Hx of fracture of wrist Hx of ovarian cancer Cervical stenosis of spinal canal Osteoporosis Lupus (systemic lupus erythematosus) Leukopenia Polyarthralgia Surgical History H/O esophagogastroduodenoscopy H/O colonoscopy Hx of removal of ovary Family History Paternal Grandmother Ovarian cancer Maternal Grandmother H/O heart bypass surgery Maternal Grandfather Heart attack Mother Asthma HTN (hypertension) Hyperlipidemia Father HTN (hypertension) Hyperlipidemia Social History Household Members: None Alcohol intake: former Patient Tobacco Use Status: Former Tobacco user Quit Date: 1982 e-Cigarette/Vaping Use: Never Used Second Hand Smoke Exposure: No Substance Use Type: Marijuana Current occupational status: employed 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 Review of Systems Const Reports fatigue Musc Reports arthralgias, Reports muscle weakness and Reports stiffness Psych Reports abnormal sleep pattern Endo Reports fatigue Physical Exam Vital Signs: Last Vital Signs Pulse 63 01/01/24 07:36 BP 146/62 H 01/01/24 07:36 Pulse Ox 98 01/01/24 07:36 Oxygen Delivery Method Room Air 01/01/24 07:36 BMI result Body Mass Index 24.0 Const General: cooperative, healthy appearing, comfortable, no acute distress and well developed Nutritional Appearance: average body habitus Orientation/consciousness: patient oriented x3 Limitations: no limitations HEENT Head: Yes normocephalic and Yes atraumatic Mouth: moist mucous membranes Resp Effort & Inspection: normal respiratory effort and able to speak in complete sentences Auscultation: clear to auscultation bilaterally Cardio Rate: regular rate Rhythm: regular rhythm GI Inspection: No distended Palpation (GI): Soft to palpation and nontender Neuro General: patient oriented x3 Extrem Other: Bilateral elbow contracture, mild right elbow pain with full extension Osteoarthritic changes of both hands with prominent Heberden's and Danita's nodes proximal muscle strength 5/5 all 4 extremities Diffuse fibromyalgia tender points Assessment & Plan Assessment & Plan (1) Lupus (systemic lupus erythematosus): Code(s): M32.9 - Systemic lupus erythematosus, unspecified Qualifiers: Systemic lupus erythematosus type: unspecified Systemic lupus erythematosus organ involvement: unspecified Qualified Code(s): M32.9 - Systemic lupus erythematosus, unspecified Plan: Lupus diagnosed based on positive CAIT, leukopenia, thrombocytopenia, low complements. Patient on Plaquenil 300 mg daily (weight based) since December 2020. she is following regularly with Ophthalmology. She was already evaluated by Hematology for her cytopenias, this is likely due to her underlying autoimmune issues. Continue with hydroxychloroquine 300 mg daily Labs before next visit in 6 months (2) Osteoporosis: Code(s): M81.0 - Age-related osteoporosis without current pathological fracture Qualifiers: Osteoporosis type: other Presence of current pathological fracture: without current pathological fracture Qualified Code(s): M81.8 - Other osteoporosis without current pathological fracture Plan: Repeat DEXA 04/2023 shows some improvement compared to 04/2021. On alendronate weekly since 2020. Continue alendronate for a total of 5 years, repeat DEXA in 04/2026 (3) Fibromyalgia, primary: Code(s): M79.7 - Fibromyalgia Plan: I feel patient does not fully comprehend the nature of fibromyalgia. Again, we Discussed management of fibromyalgia with patient. Is a noninflammatory, non-autoimmune central afferent processing disorder leading to a diffuse pain syndrome. I suggested that patient address her underlying anxiety. I suggested consulting with a psychotherapist. 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 I suggested adding some low-impact exercises such as stretching, yoga, aquatherapy, swimming, miguel-chi Patient had side effects to gabapentin in the past. Duloxetine was not helpful. We discussed Lyrica but patient prefers not to take any medications that could make her groggy. I suggested another opinion. I suggested evaluation by Rheumatology at an outside facility. Otherwise she can follow-up with me in 6 months Plan I spent 27 minutes reviewing patient's chart, evaluating patient, ordering diagnostic workup, counseling patient and documenting in the chart Orders: Orders Anti DNA DS Antibody 6 Months M32.9 - Systemic lupus erythematosus, unspecified Complement C3 6 Months M32.9 - Systemic lupus erythematosus, unspecified C Reactive Protein 6 Months M32.9 - Systemic lupus erythematosus, unspecified Complete Blood Count Auto Diff 6 Months M32.9 - Systemic lupus erythematosus, unspecified Complement C4 6 Months M32.9 - Systemic lupus erythematosus, unspecified Erythrocyte Sedimentation Rate 6 Months M32.9 - Systemic lupus erythematosus, unspecified Protein Creatinine Ratio, Ur 6 Months M32.9 - Systemic lupus erythematosus, unspecified UA w Microscopic 6 Months M32.9 - Systemic lupus erythematosus, unspecified Comprehensive Met. Panel 6 Months M32.9 - Systemic lupus erythematosus, unspecified Coding Level of Care Code Est Pt Level 4 (89652) Diagnoses Systemic lupus erythematosus, unspecified SLE type, unspecified organ involvement status M32.9 Systemic lupus erythematosus type: unspecified Systemic lupus erythematosus organ involvement: unspecified Other osteoporosis without current pathological fracture M81.8 Osteoporosis type: other Presence of current pathological fracture: without current pathological fracture Fibromyalgia, primary M79.7
== END 2024-01-01 08:02 | disposition home or self-care (01) ==
PROVIDERS: PCP Internal Medicine; Visit Provider Student in an Organized Health Care Education/Training Program
DX: M32.9 Systemic lupus erythematosus, unspecified (principal); M81.8 Other osteoporosis without current pathological fracture; M79.7 Fibromyalgia
CPT/HCPCS: 99214

== ENCOUNTER → 2024-01-01 07:33 | Outpatient (BNVA) | payer MEDICAID, SELFPAY | PROVIDERS: PCP Internal Medicine; Visit Provider Student in an Organized Health Care Education/Training Program | DX: M48.02 Spinal stenosis, cervical region (principal); M50.30 Other cervical disc degeneration, unspecified cervical region; M47.812 Spondylosis without myelopathy or radiculopathy, cervical region; M43.12 Spondylolisthesis, cervical region; M32.9 Systemic lupus erythematosus, unspecified; D72.818 Other decreased white blood cell count; D69.6 Thrombocytopenia, unspecified; M81.8 Other osteoporosis without current pathological fracture; M79.7 Fibromyalgia; G89.4 Chronic pain syndrome | CPT/HCPCS: 99212 ==

== ENCOUNTER 2024-01-01 08:48 | Outpatient (AMB) | payer MEDICAID, SELFPAY ==
--- NOTE | 2024-01-01 08:58 | MHC.OFFVIS ---
Intake Vital Signs 01/01/24 09:12 Height 5 ft 4 in Weight 139 lb BMI 23.9 BP 132/76 Blood Pressure Location Lt brachial Position Sitting Respiration 12 Pulse 54 Pulse Source Pulse Oximeter Pulse Oximetry (%) 98 Oxygen Delivery Method Room Air Intake Visit Reasons: MRI Results Intake Note: Patient comes in to discuss MRI results. Reports pain 8/10. Allergies Seasonal Allergies Allergy (Verified 01/01/24 09:13) sneezing HPI HPI Comments History of Present Illness Details Verenice is back in my office to discuss the results of the MRI of the cervical spine which I sent her for after unsuccessful treatment of spondylosis of cervical spine with medial branch block C4 C5-C6 bilateral. I was ready to discuss the MRI results when patient told me that it is not only the neck which is bothering her, her pain is all over the body, elbows wrists and muscles of the chest as well as muscles of the lower extremity in lesser extent are hurting. She is under care of Dr. Doll with SLE diagnosis. She is on hydrochloroquine. She is also taking alendronate. We did not discuss the results of the MRI of the cervical spine instead I offered the patient to try gabapentin to control her pain. I will prescribe her 400 mg twice a day. I will see her in 1 month. Prior: complains on pain in the neck bilateral upper shoulders bilateral lower shoulders bilateral upper arms posterior neck posterior back bilateral feet. In the past she was patient of Dr. Khan. Currently she is also patient of Dr. Meza rheumatology with D-x SLE and immunosuppression. 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 most of her pain in the neck she feels like bricks laid on on her shoulders and anterior chest bilaterally. She tried physical therapy in the past without significant help she went for 3 or 4 sessions of physical therapy however she denied any help from physical therapy. She is currently taking Plaquenil and alendronate. . She had an MRI of the cervical spine results of which dictated as below. [facility] Medical History (Updated 01/01/24 @ 08:03 by Krunal Meza MD) Thrombocytopenia Hx of fracture of wrist Hx of ovarian cancer Cervical stenosis of spinal canal Osteoporosis Lupus (systemic lupus erythematosus) Leukopenia Polyarthralgia Surgical History H/O esophagogastroduodenoscopy H/O colonoscopy Hx of removal of ovary Family History Paternal Grandmother Ovarian cancer Maternal Grandmother H/O heart bypass surgery Maternal Grandfather Heart attack Mother Asthma HTN (hypertension) Hyperlipidemia Father HTN (hypertension) Hyperlipidemia Social History Household Members: None Alcohol intake: former Patient Tobacco Use Status: Former Tobacco user Quit Date: 1982 e-Cigarette/Vaping Use: Never Used Second Hand Smoke Exposure: No Substance Use Type: Marijuana Current occupational status: employed 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 Tenderness of palpation paraspinal spinal region of these cervical spine unable to flex her head backwards due to severe pain. Forward movements without difficulty. Lhermitte test and Spurling tests are negative for pain increase. Sulfa maneuver is negative for pain increase. Reports awkwardness and weakness in bilateral upper extremities. Neck: No full ROM Chest Chest palpation & inspection: normal inspection of the chest Resp Effort & Inspection: normal respiratory effort, able to speak in complete sentences, normal respiratory pattern, no audible wheezes and no cough Cardio Jugular venous distension: no JVD GI Inspection: Yes normal to inspection Neuro General: patient oriented x3 and gait normal Cranial nerves: Yes CN's II-XII intact bilaterally, Yes Equal, round and reactive pupils present, Yes Normal hearing present and Yes Ability to bilaterally elevate shoulders present Speech: No Abnormal speech present Gait exam (Neuro): Normal gait present Motor exam (neuro): 5/5 motor strength present throughout Sensory Exam: No Sensory deficit (Neuro) Extrem General: No pedal edema Psych Speech and movement: Normal speech and movement present Affect: normal affect Attitude: cooperative Thought process: Normal thought process present Thought content: Normal thought content present Insight: Good insight present (Psych) Judgement: Good judgement present (Psych) Assessment & Plan Assessment & Plan (1) Chronic pain syndrome: Code(s): G89.4 - Chronic pain syndrome (2) Cervical stenosis of spinal canal: Code(s): M48.02 - Spinal stenosis, cervical region (3) Degeneration, intervertebral disc, cervical: Code(s): M50.30 - Other cervical disc degeneration, unspecified cervical region (4) Spondylosis of cervical spine: Code(s): M47.812 - Spondylosis without myelopathy or radiculopathy, cervical region (5) Spondylolisthesis, cervical region: Code(s): M43.12 - Spondylolisthesis, cervical region (6) Leukopenia: Code(s): D72.819 - Decreased white blood cell count, unspecified Qualifiers: Leukopenia type: other Qualified Code(s): D72.818 - Other decreased white blood cell count (7) Lupus (systemic lupus erythematosus): Code(s): M32.9 - Systemic lupus erythematosus, unspecified (8) Thrombocytopenia: Comment: EGD Code(s): D69.6 - Thrombocytopenia, unspecified Plan bilateral therapeutic C4-C5 C6 medial branch block resulted in no improvement I will send her to neurosurgical evaluation to Dr. Causey. She needs to go for the fresh MRI, her D-x is cervical spinal stenosis. The report of the MRI is available she has moderate to severe C5-C6 interval stenosis. However she reported today on widespread pain all over the body and she was paying more attention to pain in the elbows wrists knees and chest muscles. I offered her to try gabapentin to treat her pain. She is currently on Plaquenil/hydrochloroquine and she is also taking alendronate. I will evaluate the results of gabapentin in 1 month. She has moderate trombocitopenia. last platelet count [id number] improving from prior [id number].Any manipilation within the epidural and/or intrathecal space would require platelet count prior. Medications: New gabapentin 400 mg PO BID 60 caps 1RF 30 days Coding Level of Care Code Est Pt Level 3 (98095) Diagnoses Chronic pain syndrome G89.4 Cervical stenosis of spinal canal M48.02 Degeneration, intervertebral disc, cervical M50.30 Spondylosis of cervical spine M47.812 Spondylolisthesis, cervical region M43.12 Other decreased white blood cell (WBC) count D72.818 Leukopenia type: other Lupus (systemic lupus erythematosus) M32.9 Thrombocytopenia D69.6
[2024-01-01 09:12] VITALS: BP 132/76; PULSE 54; RESP 12; O2SAT 98; BMI 23.9
== END 2024-01-01 09:18 | disposition home or self-care (01) ==
PROVIDERS: PCP Internal Medicine; Visit Provider Anesthesiology
DX: G89.4 Chronic pain syndrome (principal); M48.02 Spinal stenosis, cervical region; M50.30 Other cervical disc degeneration, unspecified cervical region; M47.812 Spondylosis without myelopathy or radiculopathy, cervical region; M43.12 Spondylolisthesis, cervical region; D72.818 Other decreased white blood cell count; M32.9 Systemic lupus erythematosus, unspecified; D69.6 Thrombocytopenia, unspecified
CPT/HCPCS: 99213

== ENCOUNTER 2024-02-05 08:43 | Outpatient (AMB) | payer MEDICAID, SELFPAY ==
--- NOTE | 2024-02-05 08:49 | A.OFFVIS_ITS ---
Intake Vital Signs 02/05/24 08:50 Height 5 ft 4 in Weight 142 lb 8 oz BMI 24.5 BP 130/86 Blood Pressure Location Lt brachial Position Sitting Respiration 14 Pulse 57 Pulse Source Pulse Oximeter Pulse Oximetry (%) 99 Oxygen Delivery Method Room Air Intake Visit Reasons: Medication Follow Up Intake Note: Patient comes in for medication follow up. Reports pain 07/07. Allergies Seasonal Allergies Allergy (Verified 02/05/24 08:50) sneezing HPI HPI Comments History of Present Illness Details Verenice is back in my office to discuss the results of the MRI of the cervical spine which I sent her for after unsuccessful treatment of spondylosis of cervical spine with medial branch block C4 C5-C6 bilateral. I was ready to discuss the MRI results when patient told me that it is not only the neck which is bothering her, her pain is all over the body, elbows wrists and muscles of the chest as well as muscles of the lower extremity in lesser extent are hurting. She is under care of Dr. Doll with SLE diagnosis. Today she told me that Dr. Doll told her that she is not SLE patient. She is on hydrochloroquine. She is also taking alendronate. I offered this patient to try chronic opioid therapy. I explained to her briefly risks and benefits of chronic opioid therapy. I gave her urine drug screen to submit. She appears to be interested. I will schedule her for 1 hour time appointment, I encouraged her to restored chronic opioid therapy positive and negative sides. I also briefly mentioned to her the possibility of treating her pain in the neck and bilateral arms with [employer] spinal cord stimulator. I also told her that we can try it for 5 -6 days if she finds it helpful we will do permanent implantation of the device. Prior: complains on pain in the neck bilateral upper shoulders bilateral lower shoulders bilateral upper arms posterior neck posterior back bilateral feet. In the past she was patient of Dr. Khan. Currently she is also patient of Dr. Meza rheumatology with D-x SLE and immunosuppression. 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 most of her pain in the neck she feels like bricks l aid on on her shoulders and anterior chest bilaterally. She tried physical therapy in the past without significant help she went for 3 or 4 sessions of physical therapy however she denied any help from physical therapy. She is currently taking Plaquenil and alendronate. . She had an MRI of the cervical spine results of which dictated as below. [facility] Medical History (Updated 01/01/24 @ 08:03 by Krunal Meza MD) Thrombocytopenia Hx of fracture of wrist Hx of ovarian cancer Cervical stenosis of spinal canal Osteoporosis Lupus (systemic lupus erythematosus) Leukopenia Polyarthralgia Surgical History H/O esophagogastroduodenoscopy H/O colonoscopy Hx of removal of ovary Family History Paternal Grandmother Ovarian cancer Maternal Grandmother H/O heart bypass surgery Maternal Grandfather Heart attack Mother Asthma HTN (hypertension) Hyperlipidemia Father HTN (hypertension) Hyperlipidemia Social History Household Members: None Alcohol intake: former Patient Tobacco Use Status: Former Tobacco user Quit Date: 1982 e-Cigarette/Vaping Use: Never Used Second Hand Smoke Exposure: No Substance Use Type: Marijuana Current occupational status: employed 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 Review of Systems Const All systems reviewed & are unremarkable except as noted in HPI and below ENT Reports Normal hearing present Neuro Reports Normal hearing present, Denies Abnormal speech present and Denies Sensory deficit (Neuro) Physical Exam Vital Signs: Last Vital Signs Pulse 57 02/05/24 08:50 Resp 14 02/05/24 08:50 BP 130/86 02/05/24 08:50 Pulse Ox 99 02/05/24 08:50 Oxygen Delivery Method Room Air 02/05/24 08:50 BMI result Body Mass Index 24.5 Const General: no acute distress Orientation/consciousness: patient oriented x3 Eyes General: appearance normal, both eyes and all related structures Pupils: Equal, round and reactive pupils present EOM: EOMs intact bilaterally Neck Other: Limited range of motion on the neck. Tenderness of palpation paraspinal spinal region of these cervical spine unable to flex her head backwards due to severe pain. Forward movements without difficulty. Lhermitte test and Spurling tests are negative for pain increase. Sulfa maneuver is negative for pain increase. Reports awkwardness and weakness in bilateral upper extremities. Neck: No full ROM Chest Chest palpation & inspection: normal inspection of the chest Resp Effort & Inspection: normal respiratory effort, able to speak in complete sentences, normal respiratory pattern, no audible wheezes and no cough Cardio Jugular venous distension: no JVD GI Inspection: Yes normal to inspection Neuro General: patient oriented x3 and gait normal Cranial nerves: Yes CN's II-XII intact bilaterally, Yes Equal, round and reactive pupils present, Yes Normal hearing present and Yes Ability to bilaterally elevate shoulders present Speech: No Abnormal speech present Gait exam (Neuro): Normal gait present Motor exam (neuro): 5/5 motor strength present throughout Sensory Exam: No Sensory deficit (Neuro) Extrem General: No pedal edema Psych Speech and movement: Normal speech and movement present Affect: normal affect Attitude: cooperative Thought process: Normal thought process present Thought content: Normal thought content present Insight: Good insight present (Psych) Judgement: Good judgement present (Psych) Results Reviewed Results Reviewed: MRI MRI cervical spine 01/13/2021. Findings: Cervical vertebral bodies maintain normal height. There is progressive grade 1 anterolisthesis of C3 on C4 measuring up to 4 mm with alignment otherwise in maintain. There is multilevel intervertebral disc height loss predominantly at C3-C4 and C4-C5 levels. The cervical cord signal appears normal. Spinal levels: C2-C3 no posterior disc abnormality. No spinal canal or or neural foraminal stenosis. C3-C4: Progressive anterolisthesis with disc osteophyte complex and ligamentum flavum infolding resulting in progressive now moderate to severe spinal canal stenosis with flattening of the cord. Progressive severe facet arthropathy in combination with uncovertebral hypertrophy resulting in new severe bilateral neural foraminal stenosis. C4-C5: Disc osteophyte complex with uncovertebral hypertrophy and progressive moderate bilateral facet arthropathy resulting in moderate to severe spinal canal stenosis and severe lateral left more than right neural foraminal stenosis. C5-C6 disc osteophyte complex with uncovertebral hypertrophy and mild facet arthropathy resulting in progressive moderate spinal canal stenosis in progressive moderate to severe bilateral neural foraminal stenosis. C6-C7 no posterior disc abnormality. Right foraminal protrusion with uncovertebral hypertrophy mildly narrows the right neural foramen. Similar to prior. C7-T1: No posterior disc abnormality no spinal canal or neural foraminal stenosis. Assessment & Plan Assessment & Plan (1) Chronic pain syndrome: Code(s): G89.4 - Chronic pain syndrome (2) Cervical stenosis of spinal canal: Code(s): M48.02 - Spinal stenosis, cervical region (3) Degeneration, intervertebral disc, cervical: Code(s): M50.30 - Other cervical disc degeneration, unspecified cervical region (4) Spondylosis of cervical spine: Code(s): M47.812 - Spondylosis without myelopathy or radiculopathy, cervical region (5) Spondylolisthesis, cervical region: Code(s): M43.12 - Spondylolisthesis, cervical region (6) Leukopenia: Code(s): D72.819 - Decreased white blood cell count, unspecified Qualifiers: Leukopenia type: other Qualified Code(s): D72.818 - Other decreased white blood cell count (7) Lupus (systemic lupus erythematosus): Code(s): M32.9 - Systemic lupus erythematosus, unspecified (8) Thrombocytopenia: Comment: EGD Code(s): D69.6 - Thrombocytopenia, unspecified Plan bilateral therapeutic C4-C5 C6 medial branch block resulted in no improvement She was sent neurosurgical evaluation to Dr. Causey. She needs to go for the fresh MRI, her D-x is cervical spinal stenosis. Chronic opioid therapy was discussed. [facility] SCS also was discussed. Need for psychological evaluation was mentioned. UDS was given today. She will see me in 2 weeks. Gabapentin she takes and it does not alleviate her pain she also denies side effects on the gabapentin. . She is currently on Plaquenil/hydrochloroquine and she is also taking alendronate. I will evaluate the results of gabapentin in 1 month. She has moderate trombocitopenia. last platelet count [id number] improving from prior [id number].Any manipilation within the epidural and/or intrathecal space would require platelet count prior. Patient Instructions: I here by testify that I spent 32 minutes in conversation with this patient as well as evaluating her prior records, prior diagnostic studies and organizing this note. Coding Level of Care Code Est Pt Level 4 (83451) Diagnoses Chronic pain syndrome G89.4 Cervical stenosis of spinal canal M48.02 Degeneration, intervertebral disc, cervical M50.30 Spondylosis of cervical spine M47.812 Spondylolisthesis, cervical region M43.12 Other decreased white blood cell (WBC) count D72.818 Leukopenia type: other Lupus (systemic lupus erythematosus) M32.9 Thrombocytopenia D69.6
[2024-02-05 08:50] VITALS: BP 130/86; PULSE 57; RESP 14; O2SAT 99; BMI 24.5
== END 2024-02-05 09:17 | disposition home or self-care (01) ==
PROVIDERS: PCP Internal Medicine; Visit Provider Anesthesiology
DX: G89.4 Chronic pain syndrome (principal); M48.02 Spinal stenosis, cervical region; M50.30 Other cervical disc degeneration, unspecified cervical region; M47.812 Spondylosis without myelopathy or radiculopathy, cervical region; M43.12 Spondylolisthesis, cervical region; D72.818 Other decreased white blood cell count; M32.9 Systemic lupus erythematosus, unspecified; D69.6 Thrombocytopenia, unspecified
CPT/HCPCS: 99214

== ENCOUNTER → 2024-02-05 08:43 | Outpatient (BNVA) | payer MEDICAID, SELFPAY | PROVIDERS: PCP Internal Medicine; Visit Provider Anesthesiology | DX: M48.02 Spinal stenosis, cervical region (principal); M50.30 Other cervical disc degeneration, unspecified cervical region; M47.812 Spondylosis without myelopathy or radiculopathy, cervical region; M43.12 Spondylolisthesis, cervical region; M32.9 Systemic lupus erythematosus, unspecified; D72.818 Other decreased white blood cell count; D69.6 Thrombocytopenia, unspecified; G89.4 Chronic pain syndrome | CPT/HCPCS: 99212 ==

== ENCOUNTER 2024-02-19 14:46 | Outpatient (AMB) | payer MEDICAID, SELFPAY ==
--- NOTE | 2024-02-19 14:49 | A.OFFVIS_ITS ---
Vital Signs 02/19/24 15:00 Height 5 ft 4 in Weight 144 lb 6 oz BMI 24.8 BP 146/80 H Blood Pressure Location Lt brachial Position Sitting Respiration 16 Pulse 74 Pulse Source Pulse Oximeter Pulse Oximetry (%) 99 Oxygen Delivery Method Room Air Intake Visit Reasons: procedure discussion Intake Note: Patient comes in for procedure discussion. Reports pain 07/07. Allergies Seasonal Allergies Allergy (Verified 02/05/24 08:50) sneezing HPI Comments Details: Verenice is back in my office to discuss the procedures. Last time I offered the patient to become a member of chronic opioid therapy program. She was sent for UDS. UDS demonstrated oxycodone and its metabolites in the urine. According to [facility] pat she was never prescribed this medication. She is self admitted that she took this medication from her friend. I honestly doubt this statement however even taking it for the face value I can not admit this patient for chronic opioid therapy program. She is a part of the diversion of the medication skin and therefore I will not be able to prescribe her opioids ever. One other opportunity for her is to go to primary care physician who will be willing to prescribe her opioid therapy. Meanwhile I offered her [employer] spinal cord stimulator. It could cover her cervicalgia and arm pains as well as it could cover her pain in the lower back with radiation to the legs. I gave her a brochure of spinal cord stimulator. I explained to her that spinal cord stimulator procedure would require psychological evaluation. I told her that the company we used for psychological evaluation charge is 100 dollars co- pay for their services. Patient unfortunately not able to afford to pay for this service, I have told her that if it is so she might request her primary care physician to refer her to a local psychiatrist or psychologist who will be able to make evaluation for her. Radiology meanwhile reassessed her MRI in described fullness of the thyroid gland. Ultrasound of the thyroid gland is demonstrated. Radiology recommends ultrasonography of the thyroid gland. I will enter the order for ultrasonography of thyroid gland and I also will refer her to an checkout supervisor to evaluate thyroid gland. There is also C2-C3 spinal canal stenosis moderate to severe which could be subject of neurosurgical intervention. I will refer her for neurosurgical evaluation. Prior: complains on pain in the neck bilateral upper shoulders bilateral lower shoulders bilateral upper arms posterior neck posterior back bilateral feet. In the past she was patient of Dr. Khan. Currently she is also patient of Dr. Meza rheumatology with D-x SLE and immunosuppression. 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 most of her pain in the neck she feels like bricks laid on on her shoulders and anterior chest bilaterally. She tried physical therapy in the past without significant help she went for 3 or 4 sessions of physical therapy however she denied any help from physical therapy. She is currently taking Plaquenil and alendronate. . She had an MRI of the cervical spine results of which dictated as below. [facility] Medical History (Updated 02/20/24 @ 08:14 by Fidel Romero MD) Thrombocytopenia Hx of fracture of wrist Hx of ovarian cancer Cervical stenosis of spinal canal Osteoporosis Lupus (systemic lupus erythematosus) Leukopenia Polyarthralgia Surgical History H/O esophagogastroduodenoscopy H/O colonoscopy Hx of removal of ovary Family History Paternal Grandmother Ovarian cancer Maternal Grandmother H/O heart bypass surgery Maternal Grandfather Heart attack Mother Asthma HTN (hypertension) Hyperlipidemia Father HTN (hypertension) Hyperlipidemia Social History Household Members: None Alcohol intake: former Patient Tobacco Use Status: Former Tobacco user Quit Date: 1982 e-Cigarette/Vaping Use: Never Used Second Hand Smoke Exposure: No Substance Use Type: Marijuana Current occupational status: employed 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 Review of Systems Const All systems reviewed & are unremarkable except as noted in HPI and below ENT Reports Normal hearing present Neuro Reports Normal hearing present, Denies Abnormal speech present and Denies Sensory deficit (Neuro) Physical Exam Vital Signs: Last Vital Signs Pulse 74 02/19/24 15:00 Resp 16 02/19/24 15:00 BP 146/80 H 02/19/24 15:00 Pulse Ox 99 02/19/24 15:00 Oxygen Delivery Method Room Air 02/19/24 15:00 BMI result Body Mass Index 24.8 Const General: no acute distress Orientation/consciousness: patient oriented x3 Eyes General: appearance normal, both eyes and all related structures Pupils: Equal, round and reactive pupils present EOM: EOMs intact bilaterally Neck Other: Limited range of motion on the neck. Tenderness of palpation paraspinal spinal region of these cervical spine unable to flex her head backwards due to severe pain. Forward movements without difficulty. Lhermitte test and Spurling tests are negative for pain increase. Sulfa maneuver is negative for pain increase. Reports awkwardness and weakness in bilateral upper extremities. Neck: No full ROM Chest Chest palpation & inspection: normal inspection of the chest Resp Effort & Inspection: normal respiratory effort, able to speak in complete sentences, normal respiratory pattern, no audible wheezes and no cough Cardio Jugular venous distension: no JVD GI Inspection: Yes normal to inspection Neuro General: patient oriented x3 and gait normal Cranial nerves: Yes CN's II-XII intact bilaterally, Yes Equal, round and reactive pupils present, Yes Normal hearing present and Yes Ability to bilaterally elevate shoulders present Speech: No Abnormal speech present Gait exam (Neuro): Normal gait present Motor exam (neuro): 5/5 motor strength present throughout Sensory Exam: No Sensory deficit (Neuro) Extrem General: No pedal edema Psych Speech and movement: Normal speech and movement present Affect: normal affect Attitude: cooperative Thought process: Normal thought process present Thought content: Normal thought content present Insight: Good insight present (Psych) Judgement: Good judgement present (Psych) Results Reviewed Results Reviewed: Comparison is also made to an MRI scan of the cervical spine 12/17/2006. On that study, there appears to be a discrete nodule posterior to the right lobe of the thyroid gland which measures 0.7 cm, which may be consistent with a small lymph node or mildly prominent parathyroid gland. On the current study, no discrete nodule is demonstrated, but there appears to be fullness of the right lobe of the thyroid gland. Based on the recommendations of the ACR Incidental Thyroid Findings Committee (JACR 2015 Nov; 12(2):143-50), further evaluation by thyroid ultrasound is recommended for a heterogeneously enlarged thyroid gland in patients that do not have limited life expectancy or significant co-morbidities, unless clinically warranted. Addendum Dictated By: AUSTIN DE LEON MD Addendum Signed By: <Electronically signed by AUSTIN DE LEON MD in OV> 11/27/23 1401 Addendum Cosigned By: DD/ TD/TT: / EXAMINATION: MR CERVICAL SPINE WITHOUT CONTRAST CLINICAL INFORMATION: Chronic pain syndrome. COMPARISON: Plain films of the cervical spine 03/20/2023. MRI scan of the cervical spine 01/13/2021. TECHNIQUE: MRI of the cervical spine was obtained using routine sequences without contrast. FINDINGS: VERTEBRAL BODIES AND PARASPINAL SOFT TISSUES: There has been slight interval increase in the anterolisthesis of C3 on C4, now measuring 3.5 mm, increased from 2.5 mm on the prior MRI scan. There is a mild anterolisthesis of C2 on C3. There is a mild retrolisthesis of C5 on C6. There is multilevel narrowing of intervertebral disc height, most severe at C4-C5 and C5-C6. There are multilevel degenerative endplate contour changes. There are mild edematous endplate signal changes at C5-C6 which have evolved compared to the prior MRI scan. Vertebral body heights are maintained, and no fractures are demonstrated. Overall, marrow signal is homogenous. There appears to be fullness of the right lobe of the thyroid gland, without a discrete nodule. CERVICOMEDULLARY JUNCTION AND VISUALIZED POSTERIOR FOSSA: The craniocervical and posterior fossa structures are normal. Accounting for artifact, spinal cord signal appears normal. SPINAL LEVELS: C2-C3: There is moderate right and mild left facet arthropathy. Posterior disc contour is normal and there is no cord compression or central stenosis. The neural foramina are patent bilaterally. C3-C4: There is moderate right and mild left facet arthropathy. There is a broad-based posterior disc protrusion with flattening of the ventral thecal sac and effacement of CSF around the spinal cord, and there is moderate to severe spinal stenosis, unchanged. There are uncovertebral osteophytes and there is moderate to severe bilateral foraminal narrowing. C4-C5: There is mild left facet arthropathy. There is a posterior disc osteophyte complex which effaces CSF around the cord and there is moderate central stenosis. There are uncovertebral osteophytes and there is moderate bilateral foraminal narrowing. C5-C6: The facet joints appear normal. There is a broad-based posterior disc osteophyte complex which effaces CSF ventral to the spinal cord, without spinal cord compression. There is moderate to severe central stenosis. There are uncovertebral osteophytes bilaterally and there is moderate to severe bilateral foraminal narrowing. C6-C7: The facet joints appear normal bilaterally. Posterior disc contour is normal and there is no cord compression or central stenosis. There are uncovertebral osteophytes and there is mild right foraminal narrowing. C7-T1: There is moderate left facet arthropathy. Posterior disc contour is normal and there is no cord compression or central stenosis. There is mild left foraminal narrowing. T1-T2: There is a broad-based posterior disc protrusion which effaces CSF ventral spinal cord, but there is no cord compression or central stenosis. There is a left-sided disc osteophyte complex narrowing the left neural foramen. MR/MR cervical spine wo con IMPRESSION: 1. At C3-C4 there has been interval increase in the anterolisthesis secondary to facet arthropathy. There is a broad-based posterior disc protrusion with flattening of the ventral thecal sac and effacement of CSF around the cord, and there is moderate to severe spinal stenosis. There is moderate to severe bilateral foraminal narrowing. 2. At C5-C6 there is a broad-based posterior disc osteophyte complex without cord compression. There is moderate to severe central stenosis. There is moderate to severe bilateral foraminal narrowing. 3. At C4-C5 there is a posterior disc osteophyte complex with moderate central stenosis. There is moderate bilateral foraminal narrowing. 4. Spondylitic and facet arthropathic changes are also demonstrated at multiple other levels as described above. Assessment & Plan Assessment & Plan (1) Chronic pain syndrome: Code(s): G89.4 - Chronic pain syndrome Category: Medical (2) Cervical stenosis of spinal canal: Code(s): M48.02 - Spinal stenosis, cervical region Category: Medical (3) Degeneration, intervertebral disc, cervical: Code(s): M50.30 - Other cervical disc degeneration, unspecified cervical region Category: Medical (4) Spondylosis of cervical spine: Code(s): M47.812 - Spondylosis without myelopathy or radiculopathy, cervical region Category: Medical (5) Spondylolisthesis, cervical region: Code(s): M43.12 - Spondylolisthesis, cervical region Category: Medical (6) Leukopenia: Code(s): D72.819 - Decreased white blood cell count, unspecified Category: Medical Qualifiers: Leukopenia type: other Qualified Code(s): D72.818 - Other decreased w julee blood cell count (7) Lupus (systemic lupus erythematosus): Code(s): M32.9 - Systemic lupus erythematosus, unspecified Category: Medical (8) Thrombocytopenia: Comment: EGD Code(s): D69.6 - Thrombocytopenia, unspecified Category: Medical (9) Thyroid mass: Code(s): E07.9 - Disorder of thyroid, unspecified Category: Medical Plan bilateral therapeutic C4-C5 C6 medial branch block resulted in no improvement She was sent neurosurgical evaluation to Dr. Causey. She needs to go for the fresh MRI, her D-x is cervical spinal stenosis. Chronic opioid therapy was discussed. [email or web address] SCS also was discussed. She states that she can not afford psychological evaluation. She may use primary care physician who will refer her to a psychologist or psychiatrist willing to provide psychological evaluation. UDS was positive for the oxycodone which was never prescribed. Therefore there will be no possibility of admitting her to chronic opioid program. New addendum to the MRI reading mentioned fullness of the thyroid gland. I will order her as recommendations are of the radiology to go for thyroid gland ultrasonography. I will also refer her to an checkout supervisor. . She is currently on Plaquenil/hydrochloroquine and she is also taking alendronate. I will evaluate the results of gabapentin in 1 month. She has moderate trombocitopenia. last platelet count [id number] improving from prior [id number].Any manipilation within the epidural and/or intrathecal space would require platelet count prior. Orders: Orders US thyroid Today E07.9 - Disorder of thyroid, unspecified Referrals Endocrinology Referral E07.9 - Disorder of thyroid, unspecified Patient Instructions: I here by testify that I spent 35 minutes in conversation with this patient as well as planning her care, making up appropriate orders and organizing this note. Coding Level of Care Code Est Pt Level 4 (60352) Diagnoses Chronic pain syndrome G89.4 Cervical stenosis of spinal canal M48.02 Degeneration, intervertebral disc, cervical M50.30 Spondylosis of cervical spine M47.812 Spondylolisthesis, cervical region M43.12 Other decreased white blood cell (WBC) count D72.818 Leukopenia type: other Lupus (systemic lupus erythematosus) M32.9 Thrombocytopenia D69.6 Thyroid mass E07.9
[2024-02-19 15:00] VITALS: BP 146/80; PULSE 74; RESP 16; O2SAT 99; BMI 24.8
== END 2024-02-19 15:08 | disposition home or self-care (01) ==
PROVIDERS: PCP Internal Medicine; Visit Provider Anesthesiology
DX: G89.4 Chronic pain syndrome (principal); M48.02 Spinal stenosis, cervical region; M50.30 Other cervical disc degeneration, unspecified cervical region; M47.812 Spondylosis without myelopathy or radiculopathy, cervical region; M43.12 Spondylolisthesis, cervical region; D72.818 Other decreased white blood cell count; M32.9 Systemic lupus erythematosus, unspecified; D69.6 Thrombocytopenia, unspecified; E07.9 Disorder of thyroid, unspecified
CPT/HCPCS: 99214

== ENCOUNTER → 2024-02-19 14:46 | Outpatient (BNVA) | payer MEDICAID, SELFPAY | PROVIDERS: PCP Internal Medicine; Visit Provider Anesthesiology | DX: M48.02 Spinal stenosis, cervical region (principal); M50.30 Other cervical disc degeneration, unspecified cervical region; M47.812 Spondylosis without myelopathy or radiculopathy, cervical region; M43.12 Spondylolisthesis, cervical region; M32.9 Systemic lupus erythematosus, unspecified; D72.818 Other decreased white blood cell count; E07.9 Disorder of thyroid, unspecified; D69.6 Thrombocytopenia, unspecified; G89.4 Chronic pain syndrome | CPT/HCPCS: 99212 ==

== ENCOUNTER → 2024-07-02 14:58 | Outpatient (RCR) | payer MEDICAID, SELFPAY ==
[2021-01-18 09:15] VITALS: BP 173/66; PULSE 62; RESP 12; TEMP 36.4; O2SAT 98; BMI 22.9
--- NOTE | 2021-01-18 10:01 | PM.HEMONCCN ---
Subjective - Subjective Chief complaint: Low blood counts Patient: new to practice Consult date: 01/18/21 Requesting Physician: Dr. Tristen Le Primary Care Provider: Sánchez Cline MD HPI - Consult Narrative Reason for consult: Leukopenia/thrombocytopenia Narrative: Verenice Damon is a 60 year old female who has recently been diagnosed with autoimmune disorder, probable SLE sent for evaluation of chronic cytopenias. Patient has had thrombocytopenia and leukopenia dating back to 1994. At times her counts had normalized, most recent platelet count is around 60,000. In 2015 her platelet count was about 36,000. She has a history of chronic LFT elevation, she had an ultrasound of liver in 2015 which did not show any significant pathology. Patient is somewhat of a poor historian. She states that she is not aware of abnormal blood counts in the past or abnormal liver functions which have been chronic. She does consume alcohol every day, she states around 2 beers daily. No history of hepatitis or HIV. She denies any fever, chills, night sweats, loss of appetite or unexplained weight loss. Her see wheeler is contemplating starting her on Plaquenil. Her only symptom is diffuse body/joint pains. She says she had ovarian tumor and her left ovary was removed. She thinks it was cancer, this was more than 15 years ago. She did not receive chemotherapy or radiation therapy. Review of Systems - Constitutional Reports no additional constitutional complaints, Reports body aches, Denies fatigue, Denies night sweats, Denies poor appetite - Cardiovascular Reports no additional cardiovascular complaints - Respiratory Reports no additional respiratory complaints - Gastrointestinal Reports no additional gastrointestinal complaints Oncology Screenings - ECOG Performance Status ECOG Performance Status: 0 [facility] Medical History: Medical History (Last Updated 01/18/21 @ 09:24 by Sydniejuan Ordonez) CAIT positive Hx of fracture of wrist Hx of ovarian cancer Family History: Family History (Last Updated 01/18/21 @ 09:24 by Sydnie Ordonez) Paternal Grandmother Ovarian cancer Maternal Grandmother H/O heart bypass surgery Maternal Grandfather Heart attack Mother Asthma HTN (hypertension) Hyperlipidemia Father HTN (hypertension) Hyperlipidemia Surgical History: Surgical History (Last Updated 01/18/21 @ 09:24 by Sydnie Ordonez) Hx of removal of ovary Social History: Social History (Last Updated 01/18/21 @ 09:24 by Sydnie Ordonez) Alcohol History: Alcohol intake: current Alcohol History Details: Alcohol intake frequency: 0-2 drinks per day Alcohol type: beer Tobacco History: Smoking Status: Former smoker Smoking Quit Date: 1980 Substance Use History: Use of substances other than those prescribed or required for medical reasons: Yes Substance Use Type: Marijuana Smoking status: Former smoker Home Medications and Allergies Allergies Allergy/AdvReac Type Severity Reaction Status Date / Time No Known Allergies Allergy Verified 01/05/21 08:29 Physical Exam Vital signs: Vital Signs Temp 97.6 F 01/18/21 09:15 Pulse 62 01/18/21 09:15 Resp 12 01/18/21 09:15 BP 173/66 H 01/18/21 09:15 Pulse Ox 98 01/18/21 09:15 Intake & Output 01/17/21 01/18/21 01/18/21 18:59 06:59 18:59 Other: Weight 60.6 kg [place] Weight in Grams 22119 Weight 60.6 kg - Constitutional Present: no acute distress - Routine HEENT Exam Head: Present: normal inspection Eye: Present: EOMI, PERRL - Routine Neck Exam Present: supple. Absent: lymphadenopathy - Routine Respiratory Exam Present: CTAB - Routine Cardiovascular Exam Cardiovascular: Present: RRR, S1, S2 - Routine Abdominal Exam Present: normal bowel sounds, soft - Routine Neurological Exam Present: alert, oriented X3 Assessment and Plan (1) Leukopenia Status: Chronic Qualifiers: Leukopenia type: other Qualified Code(s): D72.818 - Other decreased white blood cell count 1. This is a 60-year-old woman with chronic leukopenia/thrombocytopenia dating back to 1994. This has remained stable over the years with intermittent fluctuations. She has no constitutional symptoms, signs of bruising or bleeding, no reports of serious infections. Her main symptom is arthralgias, diffuse body aches, she has recently been diagnosed with autoimmune disorder. She has normal vitamin B12 and folate levels. Normal serum protein electrophoresis. Given the chronicity of these findings, without constitutional symptoms, the cytopenias are most likely autoimmune in nature. I have ordered ultrasound abdomen/liver to re-evaluate for organomegaly. Plaquenil can cause worsening of her cytopenias. She will be monitored. Follow-up in 4 months.
--- NOTE | 2021-01-18 10:42 | MHC.HEMONCMA ---
Patient came in for a consult today for abnormal blood work. States she is tired of being in pain and always tired. Clinical summary was reviewed and updated. Patient had labs and will return in 1 month for a follow up.
--- NOTE | 2021-01-20 08:49 | MHC.HEMONCMA ---
Order for ultrasound of the abdomen placed in order wool broker.
[2021-05-10 08:40] VITALS: BP 129/66; PULSE 58; RESP 14; TEMP 36.3; O2SAT 100; BMI 21.9
--- NOTE | 2021-05-10 08:48 | P.PNHO_ITS ---
Medical Summary - Medical Summary Date of Service: 05/10/21 Chief complaint: Follow-up Medical Summary: Diagnosis: Leukopenia/thrombocytopenia Autoimmune disorder, rheumatoid arthritis and SLE. Started on Plaquenil in 2020. Normal hematological workup including SPEP/immunofixation. She has a history of chronic LFT elevation, an ultrasound of liver in 2014 which did not show any significant pathology. Interval History Interval history: Patient is here in follow-up. Other than chronic arthralgias, she reports no new symptoms. She stopped drinking alcohol. She is now on Plaquenil. She denies any fever or chills. No loss of appetite, weight loss or fatigue. Review of Systems - Constitutional Reports as per HPI, Reports no additional constitutional complaints, Denies excessive sweating, Denies malaise, Denies night sweats - Cardiovascular Reports no additional cardiovascular complaints - Respiratory Reports no additional respiratory complaints - Gastrointestinal Reports no additional gastrointestinal complaints [facility] Medical History: Medical History (Last Reviewed 05/10/21 @ 08:43 by Sydnie Ordonez) CAIT positive Cervical stenosis of spinal canal Hx of fracture of wrist Hx of ovarian cancer Hypertension Leukopenia Lupus (systemic lupus erythematosus) Osteoporosis Polyarthralgia Thrombocytopenia Family History: Family History (Last Reviewed 05/10/21 @ 08:43 by Sydnie Ordonez) Paternal Grandmother Ovarian cancer Maternal Grandmother H/O heart bypass surgery Maternal Grandfather Heart attack Mother Asthma HTN (hypertension) Hyperlipidemia Father HTN (hypertension) Hyperlipidemia Surgical History: Surgical History (Last Reviewed 05/10/21 @ 08:43 by Sydnie Ordonez) H/O colonoscopy H/O esophagogastroduodenoscopy Hx of removal of ovary Social History: Social History (Last Updated 05/10/21 @ 08:44 by Sydnie Ordonez) Living Situation History: Household Members: None Alcohol History: Alcohol intake: former Alcohol History Details: Alcohol intake frequency: does not drink Tobacco History: Patient Tobacco Use Status: Former Tobacco user Smoke Quit Date: 1982 e-Cigarette/Vaping Use: Never Used Second Hand Smoke Exposure: No Substance Use History: Use of substances other than those prescribed or required for medical reasons : No Substance Use Type: Marijuana Occupation Assessmet: Current occupational status: employed 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 Oncology Screenings - ECOG Performance Status ECOG Performance Status: 1 Home Medications and Allergies Home Medications Medication Instructions Recorded Confirmed Type ascorbate calcium (vitamin C) 500 500 mg PO DAILY 02/01/21 05/10/21 History mg tablet cholecalciferol (vitamin D3) 25 25 mcg PO DAILY 02/01/21 05/10/21 History mcg (1,000 unit) capsule vitamin B complex 1 tab PO DAILY 02/01/21 05/10/21 History vitamin C 50 mg-biotin 1,250 mcg 1 tab PO DAILY 02/14/21 05/10/21 History chewable tablet Allergies Allergy/AdvReac Type Severity Reaction Status Date / Time Seasonal Allergies Allergy sneezing Verified 04/26/21 09:40 Exam Vital signs: Vital Signs Temp 97.4 F 05/10/21 08:40 Pulse 58 05/10/21 08:40 Resp 14 05/10/21 08:40 BP 129/66 05/10/21 08:40 Pulse Ox 100 05/10/21 08:40 Intake & Output 05/09/21 05/10/21 05/10/21 18:59 06:59 18:59 Other: Weight 57.8 kg Weight in Grams 39737 Weight 57.8 kg Body Mass Index 21.9 - Constitutional Present: no acute distress - Routine HEENT Exam Head: Present: normal inspection - Routine Neck Exam Absent: lymphadenopathy - Routine Respiratory Exam Present: CTAB - Routine Cardiovascular Exam Cardiovascular: Present: RRR, S1, S2 - Routine Abdominal Exam Present: normal bowel sounds, soft - Routine Neurological Exam Present: alert, oriented X3 Data - Labs Labs: Laboratory Tests 06/23/20 04/26/21 14:54 10:25 WBC 3.6 L RBC 4.16 L Hgb 12.8 Hct 38.6 MCV 92.8 MCH 30.8 MCHC 33.2 RDW 11.2 RDW Coeff of Chloe 11.7 Plt Count 93 L Progress Note: A/P (1) Leukopenia Status: Chronic Assessment and plan: 1. This is a 61-year-old woman with chronic leukopenia/thrombocytopenia dating back to 1994. This has remained stable over the years with intermittent fluctuations, She has recently been diagnosed with autoimmune disorder in 2020. Hematological workup was negative. Abdominal ultrasound did not reveal hepatosplenomegaly. Given the chronicity of these findings, without constitutional symptoms, the cytopenias are most likely autoimmune in nature. Her blood counts are stable, she will be periodically monitored. Follow-up in 6 months. - Time Spent With Patient Time Spent with Patient (in minutes): 20 Comment: Total time spent with the patient 20 minutes, 15 minutes on [id number] encounter and 5 minutes reviewing data.
--- NOTE | 2021-05-10 10:12 | MHC.HEMONCMA ---
Patient came in for a follow up, states that she is doing well. Clinical summary was reviewed and updated. Patient did not have labs and will return in 6 months for a follow up.
== END | disposition home or self-care (01) ==
LOC: HO.ONC 01-18 08:55
PROVIDERS: PCP Internal Medicine; Referring Provider Student in an Organized Health Care Education/Training Program; Visit Provider Internal Medicine
DX: D72.818 Other decreased white blood cell count (principal); D69.6 Thrombocytopenia, unspecified; M06.9 Rheumatoid arthritis, unspecified; M32.9 Systemic lupus erythematosus, unspecified; Z79.899 Other long term (current) drug therapy
CPT/HCPCS: 99202; 99213

== ENCOUNTER 2025-08-19 08:17 | Outpatient (AMB) | payer MEDICARE, MEDICAID, SELFPAY ==
--- NOTE | 2025-08-19 08:18 | A.OFFPC_ITS ---
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: No Accompanied by: Self / Same As Patient Allergies Seasonal Allergies Allergy (Verified 08/19/25 08:19) sneezing Tobacco use date assessed: 08/19/25 Fall risk assessment: No Falls in past year Last assessed Fall Risk: 08/19/25 Dental Screening Dental Screen Date: 08/19/25 Did you have a dental visit in the last 12 months?: No Did you have a dental problem in the last 6 months where you did not have access to dental care?: No Was dental information given to patient?: Patient has dentist HPI HPI Comments History of Present Illness Details The patient is a 65-year-old female presenting with chronic pain management and evaluation of suspected fibromyalgia. She reports a history of diffuse pain described as feeling like her body is weighed down by cement, affecting her overall ability to perform daily activities. The pain is not limited to the joints, but also involves muscles, with significant discomfort noted in the neck, shoulders, back, elbows, wrists, and lower extremities. She reports a history of broken wrists, for which she has undergone surgical fixation with plates in both wrists, and suspects possible secondary impact on her elbows. The patient was previously under the care of a corporate statistical financial analyst, who diagnosed her with a form of lupus and initiated treatment with hydroxychloroquine, which she has since discontinued. Presently, she is not on any prescribed medications but uses [id number] pain relievers such as Advil with minimal relief. She also reports self-medicating with street-acquired oxycodone to manage her pain, particularly to perform physically demanding tasks associated with her work. She describes significant frustration due to the persistence of pain, which she states has been ongoing for over ten years, affecting her mental and emotional well-being, manifesting in feelings of depression due to constant pain. The multifocal nature of her pain, along with a past encounter with a corporate statistical financial analyst who advised psychotherapy due to suspected fibromyalgia, suggests a chronic pain syndrome exacerbated by fibromyalgia. The patient acknowledges a family history of polymyalgia rheumatica and diabetes on the maternal side. While she denies any familial cancer or cardiac history, she confirms no eruptive rash or sun sensitivity typically associated with lupus. She mentions symptoms consistent with potential fibromyalgia, including muscle tenderness and chronic fatigue, without any pattern of inflammations or specific events exacerbating her condition, but notes minimal activity provides some relief. Medical History: - Chronic Pain Syndrome - Suspected Fibromyalgia - Rheumatoid Arthritis - History of Polymyalgia Rheumatica (humza barrera family) - Asthma - Hypertension Surgical History: - Bilateral wrist fracture repair with p late fixation Medications: - Occasional use of Advil for pain manag ement - Self-reported use of street-acquired o xycodone for pain relief when working Family History: - Maternal history of polymyalgia rheuma tamiko - Maternal family history of diabetes Social History: - Lives alone - Former smoker, quit approximately 40 y ears ago - Uses THC and CBD without significant r elief from pain - Abstains from alcohol - 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, 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 [facility] Medical History (Updated 08/19/25 @ 09:17 by Papito Rivera MD) Muscle tenderness Thrombocytopenia Hx of fracture of wrist Hx of ovarian cancer Cervical stenosis of spinal canal Osteoporosis Lupus (systemic lupus erythematosus) Leukopenia Polyarthralgia Surgical History H/O esophagogastroduodenoscopy H/O colonoscopy Hx of removal of ovary Family History Paternal Grandmother Ovarian cancer Maternal Grandmother H/O heart bypass surgery Maternal Grandfather Heart attack Mother Asthma HTN (hypertension) Hyperlipidemia Father HTN (hypertension) Hyperlipidemia Social History Household Members: None Housing: House Alcohol intake: former Patient Tobacco Use Status: Former Tobacco user Tobacco use type: Cigarette Years Smoked: On and off in 20's-quit 47 years ago e-Cigarette/Vaping Use: Never Used Second Hand Smoke Exposure: No Substance Use Type: Marijuana service: No Current occupational status: employed and retired 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 1. Little interest or pleasure in doing things: several days 2. Feeling down, depressed, or hopeless: several days 3. Trouble falling or staying asleep, or sleeping too much: several days 4. Feeling tired or having little energy: several days 5. Poor appetite or overeating: several days 6. Feeling bad about yourself - or that you are a failure or have let yourself or your family down: several days 7. Trouble concentrating on things, such as reading the newspaper or watching television: several days 8. Moving or speaking so slowly that other people could have noticed. Or the opposite - being so fidgety or restless that you have been moving around a lot m ore than usual: several days 9. Thoughts that you would be better off or of hurting yourself in some way: several days Total score: 9 Depression Screening Interpretation: Positive Depression Screening Done: Yes 78421 - PHQ-9 Billing: Yes Source: Developed by Drs. Lucien Ty, Michelle Lloyd, Anthony Alvarez and colleagues, with an educational cleo from [employer]. Thrive Questionnaire Date Thrive assessed: 08/19/25 I am a: Patient What is your living situation today?: I have a steady place to live Within the past 12 months, did the food you bought not last and you didn't have the money to get more?: Never true Within the past 12 months, did you worry whether your food would run out before you got money to buy more?: Never true Do you have trouble paying for medicines?: No Do you have trouble getting transportation to medical appointments?: No Do you have trouble paying your heating and electricity bill?: No Do you have trouble taking care of your child, family member or friend?: No Do you have trouble with day-to-day activities such as bathing, preparing meals, shopping, managing finances, etc.?: No Are you currently unemployed and looking for a job?: No Are you interested in more education?: No THRIVE Score: 0 AUDIT C Alcohol Use Questionnaire (AUDIT-C) 1. How often do you have a drink containing alcohol?: Never 3. How often do you have six or more drinks on one occasion?: Never Total Score: 0 Score Reviewed/Action Taken: Yes KVNG-7 AMB Questionnaire KVNG-7 Date KVNG - 7 assessed: 08/19/25 Feeling nervous, anxious, or on edge: 0 = Not at all Not being able to stop or control worryin = Not at all Worrying too much about different things: 0 = Not at all Trouble relaxin = Not at all Being so restless that it is hard to sit still: 0 = Not at all Becoming easily annoyed or irritable: 0 = Not at all Feeling afraid as if something awful might happen: 0 = Not at all Total KVNG-7 score (0-4 normal; 5-9 mild; 10-14 moderate; 15-21 severe): 0 Source: Developed by Drs. Lucien Ty, Michelle Lloyd, Anthony Alvarez and colleagues, with an educational cleo from [employer]. KVNG-7 Assessment Billing KVNG-7 Assessment Tool: KVNG-7 Assessment 01036 Review of Systems Narrative - Musculoskeletal: Reports significant pain and tenderness in neck, shoulders, back, elbows, wrists, and extremities - Neurological: Reports muscle weakness, headaches, numbness, or tingling - Psychiatric: Reports feelings of depression associated with chronic pain - Constitutional: Denies tiredness being a problem, but reports waking unrefreshed and feeling exhausted - Respiratory: Denies wheezing unless walking fast All systems reviewed & are unremarkable except as reviewed in HPI and above Physical exam (Primary Care) Vital Signs: Last Vital Signs Temp 97.8 F 08/19/25 08:28 Pulse 48 L 08/19/25 08:28 Resp 18 08/19/25 08:28 BP 144/74 H 08/19/25 08:28 Pulse Ox 98 08/19/25 08:28 Oxygen Delivery Method Room Air 08/19/25 08:28 BMI result Body Mass Index 25.2 Tobacco/Smoking Status: Tobacco use Status Tobacco use date assessed 08/19/25 08/19/25 08:22 Patient Tobacco Use Status Former Tobacco user 08/19/25 08:22 Tobacco use type Cigarette 08/19/25 08:30 e-Cigarette/Vaping Use Never Used 08/19/25 08:22 Depression Screening Interpretation: Positive Narrative - Musculoskeletal: Reports significant pain and tenderness in neck, shoulders, back, elbows, wrists, and extremities - Neurological: Reports muscle weakness, headaches, numbness, or tingling - Psychiatric: Reports feelings of depression associated with chronic pain - Constitutional: Denies tiredness being a problem, but reports waking unrefreshed and feeling exhausted - Respiratory: Denies wheezing unless walking fast All systems reviewed & are unremarkable except as reviewed in HPI and above Coding Level of Care Code New Pt Level 4 (33998) Diagnoses Muscle tenderness M79.10 Systemic lupus erythematosus, unspecified SLE type, unspecified organ involvement status M32.9 Systemic lupus erythematosus type: unspecified Systemic lupus erythematosus organ involvement: unspecified Primary hypertension I10 Hypertension type: primary hypertension Additional Codes PHQ-9 - 42274 - PHQ-9 Billing: Yes ([id number]) KVNG-7 Assessment Billing - KVNG-7 Assessment Tool: KVNG-7 Assessment 78234 ([id number]) Assessment & Plan Assessment & Plan (1) Muscle tenderness: Comment: - Based on the patient's report and assessment during the visit, she meets diagnostic criteria for fibromyalgia. (Multiple tender points and fatigue, with cognitive changes) - Initiated medication regimen of duloxetine 30 mg, considering its benefits in chronic pain management and influence on depression. - Gabapentin was prescribed at 100 mg three times daily to address neuropathic components and muscle spasms. - Encouraged non-pharmacological interventions including swimming and aquatic therapy. Code(s): M79.10 - Myalgia, unspecified site Category: Medical (2) Lupus (systemic lupus erythematosus): Comment: - Prior documented history of SLE and on Hydroxychloroquine 300mg Daily however she hasn't followed with Rheumatology - Repeat testing sent, and referral for rheumatology sent Code(s): M32.9 - Systemic lupus erythematosus, unspecified Category: Medical Qualifiers: Systemic lupus erythematosus type: unspecified Systemic lupus erythematosus organ involvement: unspecified Qualified Code(s): M32.9 - Systemic lupus erythematosus, unspecified (3) Hypertension: Comment: - Initiated antihypertensive therapy with amlodipine 2.5 mg daily to manage elevated blood pressure as observed in today's visit. - Prior visits have an elevated pressure documented too Code(s): I10 - Essential (primary) hypertension Category: Medical Qualifiers: Hypertension type: primary hypertension Qualified Code(s): I10 - Essential (primary) hypertension Plan: Health Maintenance: - Recommended lifestyle modifications including increased physical activity through swimming and yoga. - Initiated discussions on hypertension management. Patient was informed and verbally consented to the use of an ambient scribe for clinic note documentation during this visit. Plan I discussed with the patient the likely diagnosis of fibromyalgia and the rationale for initiating medications duloxetine and gabapentin. I explained their role in alleviating pain and managing associated depressive symptoms, emphasizing that duloxetine may take weeks to show full effects. We reviewed non-pharmacological strategies like swimming, beneficial for muscle relaxation and overall physical health, and highlighted their importance in the comprehensive management of fibromyalgia. Discussions included the initiation of amlodipine for blood pressure control. Consent was obtained for the proposed treatment plan. Lastly, I outlined the necessity of follow-up appointments in three weeks to monitor therapeutic outcomes and adjust treatment plans as necessary. Orders: Orders Hemoglobin A1c Today Z76.89 - Persons encountering health services in other specified circumstances HIV Ab/Ag Today Z76.89 - Persons encountering health services in other specified circumstances Lipid Panel Today Z76.89 - Persons encountering health services in other specified circumstances Syphilis Screen Today Z76.89 - Persons encountering health services in other specified circumstances TSH reflex Free T4 Today Z76.89 - Persons encountering health services in other specified circumstances Vitamin D 25-OH Total Today Z76.89 - Persons encountering health services in other specified circumstances Erythrocyte Sedimentation Rate Today M79.10 - Myalgia, unspecified site CRP High Sensitivity Today M79.10 - Myalgia, unspecified site Anti DNA DS Antibody Today M32.9 - Systemic lupus erythematosus, unspecified Complete Blood Count Auto Diff Today Z76.89 - Persons encountering health services in other specified circumstances Comprehensive Met. Panel Today Z76.89 - Persons encountering health services in other specified circumstances Hepatitis A,B,C Profile Today Z76.89 - Persons encountering health services in other specified circumstances CAIT Reflex Titer and Pattern Today M32.9 - Systemic lupus erythematosus, unspecified UA and rflx microscopic Today M32.9 - Systemic lupus erythematosus, unspecified Referrals Rheumatology Referral M32.9 - Systemic lupus erythematosus, unspecified Medications: New amlodipine 2.5 mg PO DAILY 90 tabs 0RF gabapentin 100 mg PO TID 90 caps 3RF 30 days duloxetine 30 mg PO DAILY 90 caps 0RF Patient Instructions: - Start taking duloxetine and gabapentin as prescribed, and do not skip doses. - Monitor your blood pressure; report any dizziness or lightheadedness. - Engage in low-impact exercises like swimming and yoga regularly. - Follow up in three weeks for reassessment of your symptoms. - Avoid purchasing medications on the street for pain management. - Get blood work done as prescribed.
[2025-08-19 08:28] VITALS: BP 144/74; PULSE 48; RESP 18; TEMP 36.6; O2SAT 98; BMI 25.2
== END 2025-08-19 08:59 | disposition home or self-care (01) ==
PROVIDERS: PCP Student in an Organized Health Care Education/Training Program; Visit Provider Student in an Organized Health Care Education/Training Program
DX: M79.10 Myalgia, unspecified site (principal); M32.9 Systemic lupus erythematosus, unspecified; I10 Essential (primary) hypertension

== ENCOUNTER → 2025-08-19 08:17 | Outpatient (BNVA) | payer MEDICARE, MEDICAID, SELFPAY | PROVIDERS: PCP Internal Medicine; Visit Provider Student in an Organized Health Care Education/Training Program | DX: I10 Essential (primary) hypertension (principal); M79.10 Myalgia, unspecified site; M32.9 Systemic lupus erythematosus, unspecified; Z13.31 Encounter for screening for depression; Z13.39 Encounter for screening examination for other mental health and behavioral disorders; Z76.89 Persons encountering health services in other specified circumstances; Z11.59 Encounter for screening for other viral diseases; Z72.89 Other problems related to lifestyle; Z13.1 Encounter for screening for diabetes mellitus | CPT/HCPCS: 36415; 80053; 80061; 81001; 82306; 83036; 84443; 85025; 85652; 86038; 86039; 86141; 86225; 86704; 86706; 86709; 86780; 86803; 87340; 87389; 96127; 99202 ==

== ENCOUNTER 2025-08-19 09:01 | Outpatient (REF) | payer MEDICARE, MEDICAID, SELFPAY ==
[2025-08-19 09:52] LABS: MANUAL DIFF FLAG NO
[2025-08-19 09:55] LABS: Hematocrit 32.8 % (37.0-47.0); Hemoglobin 11.2 g/dl (12.0-16.0); Imm Gran Abs Auto 0.01 X10*3/uL (0.00-0.03); Imm Gran Pct Auto 0.2 % (0.0-0.4); Lymphocytes Absolute Auto 1.1 X10*3/uL (1.2-4.9); Mean Corpuscular HGB Conc 34.1 g/dl (31.0-35.0); Mean Corpuscular Hemoglobin 31.2 pg (27.0-33.0); Mean Corpuscular Volume 91.4 fL (80.0-98.0); NRBC Abs Auto 0.000 X10*3/uL (0.0-0.012); NRBC Pct Auto 0.0 /100WBC (0.0-0.2); Platelet Count 113 X10*3/uL (160-400); Red Blood Count 3.59 X10*6/uL (4.20-5.50); White Blood Count 4.3 X10*3/uL (4.8-10.8)
[2025-08-19 10:02] LABS: Appearance Urine Clear; Glucose Urine UA Negative (Negative); PH 5.5 (5.0-9.0); Specific Gravity - Urine 1.020 (1.005-1.025); UMIC TRIGGER UA YES
[2025-08-19 10:28] LABS: Alanine Aminotransferase 18 U/L (0-31); Albumin Level 4.7 g/dL (3.5-5.0); Alkaline Phosphatase 56 U/L (39-117); Anion Gap 11 (12-20); Aspartate Amino Transferase 29 U/L (5-31); Blood Urea Nitrogen 17 mg/dL (9-16); Calcium 9.6 mg/dL (8.4-10.2); Carbon Dioxide 29 mmol/L (22-29); Chloride 108 mmol/L (96-108); Cholesterol 188 mg/dL (<200); Estimated Glomerular Filt Rate > 60; HDL Cholesterol 61 mg/dL (>40); Potassium 3.8 mmol/L (3.3-5.1); Sodium 144 mmol/L (135-145); Total Protein 7.1 g/dL (6.5-8.0); Triglycerides 51 mg/dL (<150)
[2025-08-19 10:34] LABS: Erythrocyte Sedimentation Rate 23 MM/HR (0-20)
[2025-08-19 10:39] LABS: Syphilis Screen Nonreactive (Nonreactive)
[2025-08-19 10:40] LABS: HBS Num1 0.68 mIU/mL (0-7.99); HBc Num1 0.17 S/CO (0.00-0.79); HBsAGNum1 0.37 S/CO (0.00-0.99); HIV Num 1 0.04 S/CO (0.00-0.99); Hepatitis A Antibody IgM 0.23 Index (0-0.79); Hepatitis B Surface Antigen Negative (Negative); ~HepC Num1 0.18 S/CO (0.00-0.79); ~Hepatitis A Antibody IgM Nonreactive (Nonreactive); ~Hepatitis B Surface Antibody NONREACTIVE (Nonreactive); ~Hepatitis C Antibody Nonreactive (Nonreactive)
[2025-08-27 13:49] LABS: Anti Nuclear Antibody Screen POSITIVE (NEGATIVE); Anti Nuclear Antibody Titer 1:40 titer
== END 2025-08-19 09:02 | disposition home or self-care (01) ==
LOC: HO.10HDL 09:01
PROVIDERS: Visit Provider Student in an Organized Health Care Education/Training Program
DX: Z13.89 Encounter for screening for other disorder (principal)
CPT/HCPCS: 36415; 80053; 80061; 81001; 81003; 82306; 83036; 84443; 85025; 85652; 86038; 86039; 86141; 86225; 86704; 86706; 86709; 86780; 86803; 87340; 87389

== ENCOUNTER 2025-09-09 07:42 | Outpatient (AMB) | payer MEDICARE, MEDICAID, SELFPAY ==
--- OUTSIDE RECORDS SUMMARY | 2025-09-09 07:45 | XMS_ITS | Patient Health Record ---
Author Organization [facility] Address [address] [place] [id number] Care Team Providers Care Heel Shaver Name Role Phone Reilly Klein Jr Reason For Referral No Information Plan Of Treatment No Information
--- NOTE | 2025-09-09 07:58 | A.OFFPC_ITS ---
Vital Signs 09/09/25 08:03 Height 5 ft 1 in Weight 136 lb BMI 25.7 BP 130/56 L Blood Pressure Location Lt brachial Position Sitting Respiration 18 Pulse 58 Pulse Source Pulse Oximeter Temp 97.9 F Temp Source Temporal Artery Scan Pulse Oximetry (%) 98 Oxygen Delivery Method Room Air Intake Visit Reasons: 3 Week F/U Cofounder Required: No Accompanied by: Self / Same As Patient Allergies Seasonal Allergies Allergy (Verified 09/09/25 07:58) sneezing Medication List - Last Reconciled 09/09/25 by Papito Rivera MD amlodipine 2.5 mg PO DAILY ascorbate calcium (vitamin C) 500 mg PO DAILY cholecalciferol (vitamin D3) 25 mcg PO DAILY diclofenac potassium 25 mg PO ONCE duloxetine 30 mg PO DAILY gabapentin 100 mg PO TID 30 days magnesium 200 mg PO DAILY [potassium PO DAILY] turmeric mg PO vitamin B complex (B Complex-Vitamin B12 tablet) 1 tab PO DAILY vitamin C-biotin 50 mg -1,250 mcg (Suul-Piib-Jpzkq (vit C-biotin)) 1 tab PO DAILY Tobacco use date assessed: 08/19/25 Dental Screening Dental Screen Date: 08/19/25 HPI HPI Comments History of Present Illness Details The patient is a 65-year-old female presenting for a follow-up visit for management of fibromyalgia and hypertension. She reports her arm symptoms have improved with gabapentin and duloxetine, noting she can now carry items and steer her car better, whereas previously she felt as though her arms might fall off. However, she now feels her joint pain more. Her blood pressure, which was previously high, is now well-controlled in the 130/60 mmHg range on amlodipine. Initially, the new medications caused exhaustion and constipation, but these side effects have since resolved. Recent lab work showed stable hemoglobin around 12, normal electrolytes, and good kidney function. Her LDL cholesterol was slightly elevated at 117 mg/dL, and a lupus panel was positive, including a positive CAIT. She has been referred to rheumatology for the positive CAIT and has an appointment in October. The patient reports occasional headaches, which she wonders might be related to a head injury from a fall on ice this past winter. Medical History: - Fibromyalgia - Hypertension - Hyperlipidemia - History of head injury secondary to a fall Medications: - Gabapentin 100 mg three times a day fo r fibromyalgia - Duloxetine 30 mg for fibromyalgia - Amlodipine for hypertension - Vitamin B - Vitamin C - Vitamin D - Turmeric - Magnesium tablets - Metamucil as needed Diagnostic Results: - Vitals: Blood pressure is 130/60 mmHg. - Labs: - Hemoglobin: Stable at approximately 12 g/dL. - Electrolytes: Normal. - Kidney function: Good. - LDL cholesterol: 117 mg/dL. - Antinuclear antibody (CAIT) panel: Posi tive. 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 - Diet: Reports frequent consumption of large salads with tuna fish and light Caesar dressing. [facility] Medical History (Updated 09/09/25 @ 08:21 by Papito Rivera MD) Hyperlipidemia Muscle tenderness Thrombocytopenia Hx of fracture of wrist Hx of ovarian cancer Cervical stenosis of spinal canal Osteoporosis Lupus (systemic lupus erythematosus) Leukopenia Polyarthralgia Surgical History (Updated 09/08/25 @ 15:32 by Camilla Culver) H/O esophagogastroduodenoscopy H/O colonoscopy (~04/10/21) Hx of removal of ovary Family History Paternal Grandmother Ovarian cancer Maternal Grandmother H/O heart bypass surgery Maternal Grandfather Heart attack Mother Asthma HTN (hypertension) Hyperlipidemia Father HTN (hypertension) Hyperlipidemia Social History Household Members: None Housing: House Alcohol intake: former Patient Tobacco Use Status: Former Tobacco user Tobacco use type: Cigarette Years Smoked: On and off in 20's-quit 47 years ago e-Cigarette/Vaping Use: Never Used Second Hand Smoke Exposure: No Substance Use Type: Marijuana service: No Current occupational status: employed and retired 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 1. Little interest or pleasure in doing things: not at all 2. Feeling down, depressed, or hopeless: not at all 3. Trouble falling or staying asleep, or sleeping too much: not at all 4. Feeling tired or having little energy: not at all 5. Poor appetite or overeating: not at all 6. Feeling bad about yourself - or that you are a failure or have let yourself or your family down: not at all 7. Trouble concentrating on things, such as reading the newspaper or watching television: not at all 8. Moving or speaking so slowly that other people could have noticed. Or the opposite - being so fidgety or restless that you have been moving around a lot more than usual: not at all 9. Thoughts that you would be better off or of hurting yourself in some way: not at all Total score: 0 Depression Screening Interpretation: Negative Depression Screening Done: Yes Source: Developed by Drs. Lucien Ty, Michelle Lloyd, Anthony Alvarez and colleagues, with an educational cleo from [employer]. Thrive Questionnaire Date Thrive assessed: 09/09/25 I am a: Patient What is your living situation today?: I have a steady place to live Within the past 12 months, did the food you bought not last and you didn't have the money to get more?: Never true Within the past 12 months, did you worry whether your food would run out before you got money to buy more?: Never true Do you have trouble paying for medicines?: No Do you have trouble getting transportation to medical appointments?: No Do you have trouble paying your heating and electricity bill?: No Do you have trouble taking care of your child, family member or friend?: No Do you have trouble with day-to-day activities such as bathing, preparing meals, shopping, managing finances, etc.?: No Are you currently unemployed and looking for a job?: No Are you interested in more education?: No THRIVE Score: 0 AUDIT C Alcohol Use Questionnaire (AUDIT-C) 1. How often do you have a drink containing alcohol?: Never Total Score: 0 Score Reviewed/Action Taken: Yes KVNG-7 AMB Questionnaire KVNG-7 Date KVNG - 7 assessed: 09/09/25 Feeling nervous, anxious, or on edge: 0 = Not at all Not being able to stop or control worryin = Not at all Worrying too much about different things: 0 = Not at all Trouble relaxin = Not at all Being so restless that it is hard to sit still: 0 = Not at all Becoming easily annoyed or irritable: 0 = Not at all Feeling afraid as if something awful might happen: 0 = Not at all Total KVNG-7 score (0-4 normal; 5-9 mild; 10-14 moderate; 15-21 severe): 0 Source: Developed by Drs. Lucien Ty, Michelle Lloyd, Anthony Alvarez and colleagues, with an educational cleo from [employer]. Review of Systems Narrative - General: Denies weakness; reports resolution of initial exhaustion from new medications. - Neurological: Reports occasional headaches. - Musculoskeletal: Reports feeling joint pain more, but notes improvement in arm strength allowing her to carry items. - Cardiovascular: Denies chest pain. - Respiratory: Denies shortness of breath. - Gastrointestinal: Denies nausea and vomiting. - Reports initial constipation with new medication which has resolved. All systems reviewed & are unremarkable except as reviewed in HPI and above Physical exam (Primary Care) Vital Signs: Last Vital Signs Temp 97.9 F 09/09/25 08:03 Pulse 58 09/09/25 08:03 Resp 18 09/09/25 08:03 BP 130/56 L 09/09/25 08:03 Pulse Ox 98 09/09/25 08:03 Oxygen Delivery Method Room Air 09/09/25 08:03 BMI result Body Mass Index 25.7 Tobacco/Smoking Status: Tobacco use Status Tobacco use date assessed 08/19/25 09/09/25 08:00 Patient Tobacco Use Status Former Tobacco user 09/09/25 08:00 Tobacco use type Cigarette 09/09/25 08:00 e-Cigarette/Vaping Use Never Used 09/09/25 08:00 Depression Screening Interpretation: Negative Thrive Assessment: Date of Thrive Assessment Date Thrive assessed 08/19/25 09/09/25 08:00 Narrative General: +Alert and oriented, Well nourished, No acute distress. Eye: Pupils are equal, round and reactive to light, Intact accommodation, Extraocular movements are intact, Normal conjunctiva, Vision unchanged. HENT: Normocephalic, Atraumatic, Tympanic membranes are clear, Normal hearing, Oral mucosa is moist, No pharyngeal erythema, Ear canals patent. Respiratory: Lungs CTA bilaterally, No wheeze, Respirations are non-labored. Cardiovascular: Regular rate, Regular rhythm, S1 auscultated, S2 auscultated, No murmur, Good pulses equal in all extremities, Normal peripheral perfusion, No edema. Gastrointestinal: Soft, Non-tender, Non-distended, Normal bowel sounds, No organomegaly. Musculoskeletal: Normal range of motion, Normal strength, No tenderness, No swelling, No deformity, Normal gait. Integumentary: Warm, Dry, [place], Intact. Neurologic: Alert, Oriented, Normal sensory, Normal motor function, No focal defects, Cranial Nerves II-XII are grossly intact, Normal deep tendon reflexes. Psychiatric: Cooperative, Appropriate mood & affect, Normal judgment. Coding Level of Care Code Est Pt Level 4 (07618) Complex EM visit Add On G2211 Diagnoses Muscle tenderness M79.10 Primary hypertension I10 Hypertension type: primary hypertension Hyperlipidemia, unspecified hyperlipidemia type E78.5 Hyperlipidemia type: unspecified Systemic lupus erythematosus, unspecified SLE type, unspecified organ involvement status M32.9 Systemic lupus erythematosus type: unspecified Systemic lupus erythematosus organ involvement: unspecified Assessment & Plan Assessment & Plan (1) Muscle tenderness: Comment: - The patient's arm symptoms are improving on gabapentin and duloxetine. - Plan is to continue gabapentin 100 mg three times daily and duloxetine 30 mg daily. - If symptoms are not 100% improved, there is an option to increase the duloxetine dose up to 120 mg in the future. Code(s): M79.10 - Myalgia, unspecified site Category: Medical (2) Hypertension: Comment: - Blood pressure is well-controlled at 130/60 mmHg on amlodipine. - The plan is to continue the current medication regimen. Code(s): I10 - Essential (primary) hypertension Category: Medical Qualifiers: Hypertension type: primary hypertension Qualified Code(s): I10 - Essential (primary) hypertension (3) Hyperlipidemia: Comment: - LDL cholesterol is mildly elevated at 117 mg/dL. - The patient was counseled on dietary changes, particularly regarding oils and processed foods like certain salad dressings. Code(s): E78.5 - Hyperlipidemia, unspecified Category: Medical Qualifiers: Hyperlipidemia type: unspecified Qualified Code(s): E78.5 - Hyperlipidemia, unspecified (4) Lupus (systemic lupus erythematosus): Comment: - Prior documented history of SLE and on Hydroxychloroquine 300mg Daily however she hasn't followed with Rheumatology - The lupus panel was positive. - The patient has an appointment with rheumatology in October. - The plan is to await their evaluation. Code(s): M32.9 - Systemic lupus erythematosus, unspecified Category: Medical Qualifiers: Systemic lupus erythematosus type: unspecified Systemic lupus erythematosus organ involvement: unspecified Qualified Code(s): M32.9 - Systemic lupus erythematosus, unspecified Plan: Health Maintenance: - Discussed dietary modifications to manage hyperlipidemia, including reducing intake of oils and processed foods. - The patient takes vitamin B, C, D, magnesium, and turmeric supplements. - Awaiting rheumatology consultation in October for a positive CAIT test. Patient was informed and verbally consented to the use of an ambient scribe for clinic note documentation during this visit. Plan I discussed with the patient that her fibromyalgia symptoms seem to be improving with the gabapentin and duloxetine, and her blood pressure is now well- controlled on amlodipine. We reviewed her recent lab results, noting the slightly elevated LDL cholesterol of 117 mg/dL and the positive lupus panel, for which she has an upcoming rheumatology appointment. I advised her on dietary changes for her cholesterol and explained that we will await the internet and e business project manager's recommendations. We will continue her current medication regimen and I informed her that we can increase the dose of duloxetine if her fibromyalgia symptoms do not fully resolve. We agreed on a plan for monthly check-ins over the next three months to monitor her progress, with the next visit scheduled in one month. Patient Instructions: - Continue taking your current medications as prescribed, including gabapentin, duloxetine, and amlodipine. - Be mindful of your diet to help with your cholesterol, especially by checking the ingredients in oily salad dressings. - Do not miss your scheduled appointment with the rheumatology clinic in October. - We will send in any needed refills for your medications. - Please schedule a follow-up appointment in one month.
[2025-09-09 08:03] VITALS: BP 130/56; PULSE 58; RESP 18; TEMP 36.6; O2SAT 98; BMI 25.7
== END 2025-09-09 08:17 | disposition home or self-care (01) ==
PROVIDERS: PCP Student in an Organized Health Care Education/Training Program; Visit Provider Student in an Organized Health Care Education/Training Program
DX: M79.10 Myalgia, unspecified site (principal); I10 Essential (primary) hypertension; E78.5 Hyperlipidemia, unspecified; M32.9 Systemic lupus erythematosus, unspecified

== ENCOUNTER → 2025-09-09 07:42 | Outpatient (BNVA) | payer MEDICARE, MEDICAID, SELFPAY | PROVIDERS: PCP Student in an Organized Health Care Education/Training Program; Visit Provider Student in an Organized Health Care Education/Training Program | DX: I10 Essential (primary) hypertension (principal); M79.7 Fibromyalgia; E78.5 Hyperlipidemia, unspecified; M32.9 Systemic lupus erythematosus, unspecified; Z13.39 Encounter for screening examination for other mental health and behavioral disorders | CPT/HCPCS: 96127; 99212 ==

== ENCOUNTER 2025-10-07 09:21 | Outpatient (AMB) | payer MEDICARE, MEDICAID, SELFPAY ==
--- NOTE | 2025-10-07 09:27 | A.OFFPC_ITS ---
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 She reports feeling no improvement in her generalized pain, stating she has very few good days, and when she does, the pain returns with a vengeance the following day. She describes the pain as a feeling of being overstretched. For her fibromyalgia, she was started on duloxetine 30 mg about eight weeks ago and has not noticed any benefit yet. She also takes gabapentin 100 mg three times daily and does not feel it provides any relief. The patient reports a high tolerance to both pain and medications. She has a positive CAIT and an upcoming rheumatology appointment in October for further evaluation. The patient takes amlodipine 2.5 mg for hypertension. 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 Medical History: - Fibromyalgia - Chronic pain - Hypertension - Positive CAIT, suggestive of an autoimm une condition Medications: - Duloxetine 30 mg daily for fibromyalgi a/muscle tenderness, started approximately 8 weeks ago. - Gabapentin 100 mg three times a day fo r pain. - Amlodipine 2.5 mg for hypertension. Family History: - Mother: Polymyalgia rheumatica, arthri tis, and other autoimmune conditions. - Sister: Polymyalgia rheumatica. - Father: Arthritis. Diagnostic Results: - Labs: CAIT positive. 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 - Exercise: The patient reports being ph ysically active through her work, which involves vacuuming and cleaning, but does not participate in formal exercise like going to a gym or swimming. Health Maintenance - Recommended starting a formal exercise regimen, specifically aquatic therapy or swimming, to help with muscle pain. - Patient has an upcoming follow-up with rheumatology in October. - Follow up in 2 months is scheduled to reassess conditions. Patient was informed and verbally consented to the use of an ambient scribe for clinic note documentation during this visit. Vital signs reviewed. Comprehensive history, review of systems, and physical exam completed. Medications, allergies, and problem list reviewed and updated. Counseling provided on nutrition, regular exercise, sleep hygiene, and moderation of alcohol use. Discussed age-appropriate screenings (mammogram, colonoscopy, Pap, bone density) and immunizations (flu, COVID, shingles, Tdap). Screened for depression, fall risk, and home safety; no current concerns. Discussed stress management, dental and vision care, and importance of ongoing preventive follow-up. Routine labs ordered for metabolic and lipid screening. Patient educated on healthy lifestyle and agrees with the plan. [facility] Medical History (Updated 10/07/25 @ 09:43 by Papito Rivera MD) Hyperlipidemia Muscle tenderness Thrombocytopenia Hx of fracture of wrist Hx of ovarian cancer Cervical stenosis of spinal canal Osteoporosis Lupus (systemic lupus erythematosus) Leukopenia Polyarthralgia Surgical History (Updated 09/08/25 @ 15:32 by Camilla Culver) H/O esophagogastroduodenoscopy H/O colonoscopy (~04/10/21) Hx of removal of ovary Family History Paternal Grandmother Ovarian cancer Maternal Grandmother H/O heart bypass surgery Maternal Grandfather Heart attack Mother Asthma HTN (hypertension) Hyperlipidemia Father HTN (hypertension) Hyperlipidemia Social History Household Members: None Housing: House Alcohol intake: former Patient Tobacco Use Status: Former Tobacco user Tobacco use type: Cigarette Years Smoked: On and off in 20's-quit 47 years ago e-Cigarette/Vaping Use: Never Used Second Hand Smoke Exposure: No Substance Use Type: Marijuana service: No Current occupational status: employed and retired 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 Lucien Ty, Michelle Lloyd, Anthony Alvarez and colleagues, with an educational cleo from [employer]. Review of Systems Narrative Review of Systems - General: Denies feeling well, reports feeling overstretched. - Musculoskeletal: Reports widespread pain and muscle tenderness, involving her back. - GI: Denies nausea or vomiting; reports normal bowel movements. - : Reports normal urination. - Cardiovascular: Denies chest pain. - Respiratory: Denies shortness of breath. All systems reviewed & are unremarkable except as reviewed in HPI and above Physical exam (Primary Care) Vital Signs: Last Vital Signs Temp 97.6 F 10/07/25 09:30 Pulse 58 10/07/25 09:30 Resp 18 10/07/25 09:30 BP 146/72 H 10/07/25 09:30 Pulse Ox 98 10/07/25 09:30 Oxygen Delivery Method Room Air 10/07/25 09:30 BMI result Body Mass Index 25.7 Tobacco/Smoking Status: Tobacco use Status Tobacco use date assessed 08/19/25 10/07/25 09:29 Patient Tobacco Use Status Former Tobacco user 10/07/25 09:29 Tobacco use type Cigarette 10/07/25 09:29 e-Cigarette/Vaping Use Never Used 10/07/25 09:29 Thrive Assessment: Date of Thrive Assessment Date Thrive assessed 09/09/25 10/07/25 09:29 Narrative Physical Exam General: +Alert and oriented, Well nourished, No acute distress. Eye: Pupils are equal, round and reactive to light, Intact accommodation, Extra ocular movements are intact, Normal conjunctiva, Vision unchanged. HENT: Normocephalic, Atraumatic, Tympanic membranes are clear, Normal hearing, Oral mucosa is moist, No pharyngeal erythema, Ear canals patent. Respiratory: Lungs CTA bilaterally, No wheeze, Respirations are non-labored. Cardiovascular: Regular rate, Regular rhythm, S1 auscultated, S2 auscultated, No murmur, Good pulses equal in all extremities, Normal peripheral perfusion, No edema. Gastrointestinal: Soft, Non-tender, Non-distended, Normal bowel sounds, No organomegaly. Musculoskeletal: Normal range of motion, Normal strength, No tenderness, No swelling, No deformity, Normal gait. Integumentary: Warm, Dry, [place], Intact. Neurologic: Alert, Oriented, Normal sensory, Normal motor function, No focal defects, Cranial Nerves II-XII are grossly intact, Normal deep tendon reflexes. Psychiatric: Cooperative, Appropriate mood & affect, Normal judgment. Coding Level of Care Code Est Pt Level 4 (11545) Add On Problem Visit Only Diagnoses Muscle tenderness M79.10 Primary hypertension I10 Hypertension type: primary hypertension Assessment & Plan Assessment & Plan (1) Muscle tenderness: Comment: - The patient's widespread pain has not improved despite being on duloxetine for approximately eight weeks and taking gabapentin. - Given the short duration of the duloxetine trial, the plan is to continue the current dose of 30 mg daily and re-evaluate in two months, at which time an increase may be considered. - Gabapentin will be continued at 100 mg three times daily, with a potential future increase to 300 mg three times daily. - The patient is strongly advised to start aquatic therapy, such as swimming, to help with her muscles. - She will follow up with rheumatology in October for her positive CAIT. Code(s): M79.10 - Myalgia, unspecified site Category: Medical (2) Hypertension: Comment: - The patient's blood pressure was elevated at 146/72 mmHg, which she attributes to her pain. - The dose of amlodipine will be increased from 2.5 mg to 5 mg daily to better control her blood pressure. Code(s): I10 - Essential (primary) hypertension Category: Medical Qualifiers: Hypertension type: primary hypertension Qualified Code(s): I10 - Essential (primary) hypertension Plan: Health Maintenance: - Recommended starting a formal exercise regimen, specifically aquatic therapy or swimming, to help with muscle pain. - Patient has an upcoming follow-up with rheumatology in October. - Follow up in 2 months is scheduled to reassess conditions. Patient was informed and verbally consented to the use of an ambient scribe for clinic note documentation during this visit. Vital signs reviewed. Comprehensive history, review of systems, and physical exam completed. Medications, allergies, and problem list reviewed and updated. Counseling provided on nutrition, regular exercise, sleep hygiene, and moderation of alcohol use. Discussed age-appropriate screenings (mammogram, colonoscopy, Pap, bone density) and immunizations (flu, COVID, shingles, Tdap). Screened for depression, fall risk, and home safety; no current concerns. Discussed stress management, dental and vision care, and importance of ongoing preventive follow-up. Routine labs ordered for metabolic and lipid screening. Patient educated on healthy lifestyle and agrees with the plan. Plan I discussed with the patient that she is not feeling better regarding her widespread pain. I explained that her medication, duloxetine, may take six to eight weeks to become effective, and since we are just at that rishi, I recommended continuing it for now to give it more time. We will re-evaluate in two months and can consider increasing the dose then if needed. Regarding her elevated blood pressure of 146/72 mmHg, I acknowledged that pain can cause it to rise but recommended doubling her amlodipine dose from 2.5 mg to 5 mg to achieve better control. I strongly advised her to start aquatic therapy, explaining that the resistance from the water will be beneficial for her muscles and is different from the physical activity she gets at work. We will maintain her current gabapentin dose and she will continue with her plan to see rheumatology in October. I scheduled a follow-up appointment in two months. Medications: New amlodipine 5 mg PO DAILY 90 tabs 0RF Discontinued amlodipine Discontinued Reason: Doctor's Order 2.5 mg PO DAILY 90 tabs 0RF Patient Instructions: - Increase your amlodipine dose to 5 mg once daily for your blood pressure. - Continue taking duloxetine 30 mg daily for your pain. We will give this medication more time to work. - Continue taking gabapentin 100 mg three times per day. - It is very important that you start a swimming routine or other water-based exercise (aquatic therapy) to help your muscles. - Keep your appointment with the supply chain design manager (joint specialist) in October. - Return for a follow-up visit in two months.
[2025-10-07 09:30] VITALS: BP 146/72; PULSE 58; RESP 18; TEMP 36.4; O2SAT 98; BMI 25.7
== END 2025-10-07 09:43 | disposition home or self-care (01) ==
PROVIDERS: PCP Student in an Organized Health Care Education/Training Program; Visit Provider Student in an Organized Health Care Education/Training Program
DX: M79.10 Myalgia, unspecified site (principal); I10 Essential (primary) hypertension

== ENCOUNTER → 2025-10-07 09:21 | Outpatient (BNVA) | payer MEDICARE, MEDICAID, SELFPAY | PROVIDERS: PCP Student in an Organized Health Care Education/Training Program; Visit Provider Student in an Organized Health Care Education/Training Program | DX: M79.10 Myalgia, unspecified site (principal); I10 Essential (primary) hypertension; R76.89 Other specified abnormal immunological findings in serum; Z87.891 Personal history of nicotine dependence; Z83.2 Family history of diseases of the blood and blood-forming organs and certain disorders involving the immune mechanism | CPT/HCPCS: 99212 ==